=== PATIENT | female | born 1960 | race Hispanic/Latino ===

== ENCOUNTER 2020-11-03 15:15 | Inpatient (IN) | payer MEDICARE, OTHER ==
[2020-11-03] MEDS ORDERED: SODIUM CHLORIDE 0.9% 1000 ML 1,000 ML IV ONE (16:25)
--- NOTE | 2020-11-03 16:27 | Emergency Department Report ---
ED General Adult HPI - General Chief complaint: Altered Mental Status Stated complaint: ALTERED MENTAL STATUS PUI?: No Time Seen by Provider: 11/03/20 16:04 Source: patient, EMS (Verbal report received from emergency medical services. EMS documentation not available at time of chart dictation ), RN notes reviewed, old records reviewed Mode of arrival: Stretcher Limitations: Altered Mental Status, Physical Limitation - History of Present Illness Initial comments: The patient is a 59-year-old female. As per enclosed documentation, her past medical history includes chronic mental illness, extensive substance use history, but reportedly denies cocaine and meth. Her preference is liquor. As per enclosed psychiatric documentation, at [facility], she was noted to be talkative and illogical. She also denied hallucinations, denied homicidality or suicidality. On October 26, she was met at the bedside, and not found to have any complaints. In addition, it appears that there were no issues with her detox. She did not endorse homicidality or suicidality. On 2020 she was evaluated by the author, chart was reviewed, and she was found to be tangential, hyperverbal, circumstantial and confused. She also required redirection. On October 28, 2020, she was again seen for psychiatric follow-up, chart reviewed and case was seen with the treatment team. She was exhibiting disorganized nonsensical irrational thinking, with tangential thought process, and grandiose delusions. She denied hallucinations. However, she was noted to be difficult to follow, hyperverbal, easily confused, and requiring redirection. She did make nonsensical statements, such as indicating that a baseball superstar gave her $700 million. At that point in time, it was felt that her psychosis was worsening, and she was increased on her Zyprexa dose. It was also felt that the patient has severe impairment of level of functioning, and that discharge might exacerbate illness and severely impaired disorder, thoughts and perception. Today, she is sent to the emergency room by her psychiatric facility for evaluation of altered mental status. Her vital signs in the field were unremarkable. Last known well time is not known. As per verbal report from EMS they received a phone call for altered mental status. They report unremarkable vital signs in the field. Did not perform an Accu-Chek in the field. They report the patient required 2 person assistance with ambulation. Her current medications include Risperdal, Zyprexa, Tegretol. The patient herself is awake to name. She tells me that she lives in [place]. She knows that she is to the hospital. She is sleepy but arousable. She denies physical pain. She denies homicidality and suicidality. She denies headache, neck pain, chest pain, abdominal pain, shortness of breath, hematemesis, bright red blood per rectum, and urinary symptoms. However, she is sleepy, and difficult to arouse. She is a poor historian. She does not know the month, and she does not know the current president; she believes that the current president is the form present (Mr. Mace). On review of systems, she does endorse bilateral lower extremity swelling. It is unknown how long this swelling has been present for. The patient is confused, and cannot describe exacerbating, relieving factors, aggravating factors, or qualitative nature of her symptoms. -: unknown Location: left, right, lower extremity (Bilateral lower extremity swelling) Quality: other Consistency: other Improves with: other Worsens with: other Associated Symptoms: other - Related Data Allergies Allergy/AdvReac Type Severity Reaction Status Date / Time No Known Allergies Allergy Verified 11/03/20 16:05 ED Review of Systems ROS: Stated complaint: ALTERED MENTAL STATUS Other details as noted in HPI Comment: Unobtainable due to pts medical conditions ED Past Medical Hx - Social History Smoking Status: Former Smoker ED Physical Exam - General Limitations: Altered Mental Status, Physical Limitation General appearance: other (The patient is sleepy but arousable) - Head Head exam: Present: atraumatic, normocephalic - Eye Eye exam: Present: normal appearance, PERRL, EOMI. Absent: nystagmus - ENT ENT exam: Present: normal exam, normal orophraynx, mucous membranes moist, normal external ear exam - Neck Neck exam: Present: normal inspection, full ROM. Absent: tenderness, meningismus - Respiratory Respiratory exam: Present: normal lung sounds bilaterally. Absent: respiratory distress, wheezes, rales, rhonchi, stridor, decreased breath sounds - Cardiovascular Cardiovascular Exam: Present: regular rate, normal rhythm, normal heart sounds. Absent: bradycardia, tachycardia, irregular rhythm, systolic murmur, diastolic murmur, rubs, gallop - GI/Abdominal GI/Abdominal exam: Present: soft. Absent: distended, tenderness, guarding, rebound, rigid, pulsatile mass - Rectal Rectal exam: Present: normal inspection, other (Chaperoned by nurse Glendy tatum). Absent: heme (-) stool - Extremities Exam Extremities exam: Present: normal inspection, full ROM, pedal edema (2-3+ edema in the bilateral lower extremities.), other (2+ pulses noted in the bilateral upper and lower extremities. There is no palpable cord. negative Homans sign. Muscular compartments are soft. The pelvis is stable.). Absent: calf tenderness - Back Exam Back exam: Present: normal inspection, full ROM. Absent: tenderness, CVA tenderness (R), CVA tenderness (L), paraspinal tenderness, vertebral tenderness - Neurological Exam Neurological exam: Present: alert, reflexes normal, other (No facial droop. Tongue midline. Extraocular movements intact bilaterally. Facial sensation intact to light touch in V1, V2, V3 distribution bilaterally. 5 and a 5 strength in 4 extremities. Sensation intact to light touch in 4 extremities.) - Psychiatric Psychiatric exam: Present: flat affect. Absent: homicidal ideation, suicidal ideation - Skin Skin exam: Present: warm, dry, intact, normal color. Absent: rash ED Course Vital Signs 11/03/20 11/03/20 11/03/20 15:16 16:04 16:30 Temperature 97 F L Pulse Rate 80 75 92 H Respiratory 15 20 16 Rate Blood Pressure 93/62 124/70 Blood Pressure 123/69 [Left] O2 Sat by Pulse 99 98 100 Oximetry O2 Sat by Pulse Oximetry [ Digit-Finger] 11/03/20 11/03/20 11/03/20 17:00 18:10 18:30 Temperature Pulse Rate 76 81 Respiratory 9 L 13 Rate Blood Pressure 122/51 131/83 Blood Pressure [Left] O2 Sat by Pulse 100 100 Oximetry O2 Sat by Pulse 99 Oximetry [ Digit-Finger] 11/03/20 11/04/20 22:00 00:00 Temperature Pulse Rate Respiratory 20 Rate Blood Pressure Blood Pressure [Left] O2 Sat by Pulse 100 98 Oximetry O2 Sat by Pulse Oximetry [ Digit-Finger] - Reevaluation(s) Reevaluation #1: 11/03/20 16:45 Differential diagnosis, including but not limited to: Intracranial lesion, pneumonia, CHF, renal insufficiency, hepatic insufficiency, thyroid derangement, urinary tract infection, Warnicke's encephalopathy disorganized behavior Assessment and plan: 59-year-old female, who is afebrile, with reassuring vital signs, with scleral icterus, but no nystagmus, confusion, progressively worse frieda mental status over the past few days, complaint of possible ataxia, last known well time is not explicitly known, therefore, place patient on filter press tender head, obtain CT scan of the brain, x-ray of the chest, lower extremity DVT study, urinalysis, serum toxicology studies, arterial blood gas, administer fluids, lower extremity DVT study, and 500 mg of thiamine empirically for possible Wernicke's encephalopathy. Have requested neurology consultation. Reassess after initial data points. We will likely admit this patient for medical stabilization once her initial diagnostics have resulted. 11/03/20 18:09 Laboratory studies demonstrate nonspecific elevation in liver function tests, hyperbilirubinemia, normocytic anemia, elevated INR, negative DVT study, negative CT scan of the brain, hyperammonemia. Lactulose ordered. Admitted to the care of Dr. Kirkland of the internal medicine service. - Consultations Consultation #1: 11/04/20 00:21 Discussed history, physical, clinical impression and overall plan of care with consulting neurology, Dr. Manning. Her recommendations are reviewed and appreciated. Patient to be admitted to the medical service. She is in agreement with the plan of care. - Pulse Oximetry Interpretation Digit-Finger Initial Pulse Oximetry Readin O2 Sat by Pulse Oximetry: 99 Actions Taken: none ED Medical Decision Making - Lab Data Result diagrams: 11/03/20 16:29 11/03/20 16:29 Vital Signs 11/03/20 11/03/20 15:16 16:04 Temperature 97 F L Pulse Rate 80 75 Respiratory 15 20 Rate Blood Pressure 93/62 Blood Pressure 123/69 [Left] O2 Sat by Pulse 99 98 Oximetry Lab Results 11/03/20 11/03/20 11/03/20 Range/Units 16:01 16:29 16:29 WBC 7.6 (4.5-11.0) K/mm3 RBC 2.86 L (3.65-5.03) M/mm3 Hgb 9.6 L (10.1-14.3) gm/dl Hct 28.4 L (30.3-42.9) % MCV 99 H (79-97) fl MCH 33 H (28-32) pg MCHC 34 (30-34) % RDW 23.5 H (13.2-15.2) % Plt Count 169 (140-440) K/mm3 Lymph % (Auto) 12.9 L (13.4-35.0) % Ward % (Auto) 15.4 H (0.0-7.3) % Eos % (Auto) 1.2 (0.0-4.3) % Baso % (Auto) 0.9 (0.0-1.8) % Lymph # (Auto) 1.0 L (1.2-5.4) K/mm3 Ward # (Auto) 1.2 H (0.0-0.8) K/mm3 Eos # (Auto) 0.1 (0.0-0.4) K/mm3 Baso # (Auto) 0.1 (0.0-0.1) K/mm3 Seg Neutrophils % 69.6 (40.0-70.0) % Seg Neutrophils # 5.3 (1.8-7.7) K/mm3 PT 17.3 H (12.2-14.9) Sec. INR 1.35 H (0.87-1.13) APTT 36.0 (24.2-36.6) Sec. ABG pH (7.320-7.450) POC ABG pCO2 (32.0-48.0) mmHg POC ABG pO2 (83-108) mmHg POC ABG HCO3 ABG O2 Saturation (0-100) POC ABG Base Excess ABG Hemoglobin (12.0-17.5) ABG Oxyhemoglobin (94-98) ABG Methemoglobin (0.0-1.5) ABG Sodium (136.0-145.0) mmol/L ABG Potassium (3.40-4.50) mmol/L ABG Chloride (98-107) mmol/L ABG Glucose (65-95) mg/dL ABG Lactate (0.18-30.0) Carboxyhemoglobin (0.5-1.5) FiO2 % POC Glucose 92 (70-105) mg/dL Magnesium (1.7-2.3) mg/dL Total Creatine Kinase (30-135) units/L NT-Pro-B Natriuret Pep (0-900) pg/mL TSH (0.270-4.200) mlU/mL Arterial Blood Glucose (65-95) mg/dL Salicylates (2.8-20.0) mg/dL Acetaminophen (10.0-30.0) ug/mL Plasma/Serum Alcohol (0-0.07) % Blood Type 11/03/20 11/03/20 11/03/20 Range/Units 16:29 16:29 16:29 WBC (4.5-11.0) K/mm3 RBC (3.65-5.03) M/mm3 Hgb (10.1-14.3) gm/dl Hct (30.3-42.9) % MCV (79-97) fl MCH (28-32) pg MCHC (30-34) % RDW (13.2-15.2) % Plt Count (140-440) K/mm3 Lymph % (Auto) (13.4-35.0) % Ward % (Auto) (0.0-7.3) % Eos % (Auto) (0.0-4.3) % Baso % (Auto) (0.0-1.8) % Lymph # (Auto) (1.2-5.4) K/mm3 Ward # (Auto) (0.0-0.8) K/mm3 Eos # (Auto) (0.0-0.4) K/mm3 Baso # (Auto) (0.0-0.1) K/mm3 Seg Neutrophils % (40.0-70.0) % Seg Neutrophils # (1.8-7.7) K/mm3 PT (12.2-14.9) Sec. INR (0.87-1.13) APTT (24.2-36.6) Sec. ABG pH (7.320-7.450) POC ABG pCO2 (32.0-48.0) mmHg POC ABG pO2 (83-108) mmHg POC ABG HCO3 ABG O2 Saturation (0-100) POC ABG Base Excess ABG Hemoglobin (12.0-17.5) ABG Oxyhemoglobin (94-98) ABG Methemoglobin (0.0-1.5) ABG Sodium (136.0-145.0) mmol/L ABG Potassium (3.40-4.50) mmol/L ABG Chloride (98-107) mmol/L ABG Glucose (65-95) mg/dL ABG Lactate (0.18-30.0) Carboxyhemoglobin (0.5-1.5) FiO2 % POC Glucose (70-105) mg/dL Magnesium (1.7-2.3) mg/dL Total Creatine Kinase (30-135) units/L NT-Pro-B Natriuret Pep (0-900) pg/mL TSH 1.400 (0.270-4.200) mlU/mL Arterial Blood Glucose (65-95) mg/dL Salicylates < 0.3 L (2.8-20.0) mg/dL Acetaminophen 5.0 L (10.0-30.0) ug/mL Plasma/Serum Alcohol (0-0.07) % Blood Type 11/03/20 11/03/20 11/03/20 Range/Units 16:29 16:29 16:29 WBC (4.5-11.0) K/mm3 RBC (3.65-5.03) M/mm3 Hgb (10.1-14.3) gm/dl Hct (30.3-42.9) % MCV (79-97) fl MCH (28-32) pg MCHC (30-34) % RDW (13.2-15.2) % Plt Count (140-440) K/mm3 Lymph % (Auto) (13.4-35.0) % Ward % (Auto) (0.0-7.3) % Eos % (Auto) (0.0-4.3) % Baso % (Auto) (0.0-1.8) % Lymph # (Auto) (1.2-5.4) K/mm3 Ward # (Auto) (0.0-0.8) K/mm3 Eos # (Auto) (0.0-0.4) K/mm3 Baso # (Auto) (0.0-0.1) K/mm3 Seg Neutrophils % (40.0-70.0) % Seg Neutrophils # (1.8-7.7) K/mm3 PT (12.2-14.9) Sec. INR (0.87-1.13) APTT (24.2-36.6) Sec. ABG pH (7.320-7.450) POC ABG pCO2 (32.0-48.0) mmHg POC ABG pO2 (83-108) mmHg POC ABG HCO3 ABG O2 Saturation (0-100) POC ABG Base Excess ABG Hemoglobin (12.0-17.5) ABG Oxyhemoglobin (94-98) ABG Methemoglobin (0.0-1.5) ABG Sodium (136.0-145.0) mmol/L ABG Potassium (3.40-4.50) mmol/L ABG Chloride (98-107) mmol/L ABG Glucose (65-95) mg/dL ABG Lactate (0.18-30.0) Carboxyhemoglobin (0.5-1.5) FiO2 % POC Glucose (70-105) mg/dL Magnesium 1.80 (1.7-2.3) mg/dL Total Creatine Kinase 78 (30-135) units/L NT-Pro-B Natriuret Pep 416.8 (0-900) pg/mL TSH (0.270-4.200) mlU/mL Arterial Blood Glucose (65-95) mg/dL Salicylates (2.8-20.0) mg/dL Acetaminophen (10.0-30.0) ug/mL Plasma/Serum Alcohol < 0.01 (0-0.07) % Blood Type O POSITIVE 11/03/20 Range/Units 17:16 WBC (4.5-11.0) K/mm3 RBC (3.65-5.03) M/mm3 Hgb (10.1-14.3) gm/dl Hct (30.3-42.9) % MCV (79-97) fl MCH (28-32) pg MCHC (30-34) % RDW (13.2-15.2) % Plt Count (140-440) K/mm3 Lymph % (Auto) (13.4-35.0) % Ward % (Auto) (0.0-7.3) % Eos % (Auto) (0.0-4.3) % Baso % (Auto) (0.0-1.8) % Lymph # (Auto) (1.2-5.4) K/mm3 Ward # (Auto) (0.0-0.8) K/mm3 Eos # (Auto) (0.0-0.4) K/mm3 Baso # (Auto) (0.0-0.1) K/mm3 Seg Neutrophils % (40.0-70.0) % Seg Neutrophils # (1.8-7.7) K/mm3 PT (12.2-14.9) Sec. INR (0.87-1.13) APTT (24.2-36.6) Sec. ABG pH 7.414 (7.320-7.450) POC ABG pCO2 33.8 (32.0-48.0) mmHg POC ABG pO2 91.9 (83-108) mmHg POC ABG HCO3 21.1 ABG O2 Saturation 96.5 (0-100) POC ABG Base Excess -2.9 ABG Hemoglobin 10.5 L (12.0-17.5) ABG Oxyhemoglobin 96.2 (94-98) ABG Methemoglobin 0.1 (0.0-1.5) ABG Sodium 139.0 (136.0-145.0) mmol/L ABG Potassium 4.3 (3.40-4.50) mmol/L ABG Chloride 106.0 (98-107) mmol/L ABG Glucose 84 (65-95) mg/dL ABG Lactate 1.13 (0.18-30.0) Carboxyhemoglobin 0.2 L (0.5-1.5) FiO2 % 21.0 POC Glucose (70-105) mg/dL Magnesium (1.7-2.3) mg/dL Total Creatine Kinase (30-135) units/L NT-Pro-B Natriuret Pep (0-900) pg/mL TSH (0.270-4.200) mlU/mL Arterial Blood Glucose 84 (65-95) mg/dL Salicylates (2.8-20.0) mg/dL Acetaminophen (10.0-30.0) ug/mL Plasma/Serum Alcohol (0-0.07) % Blood Type Lab Results 11/03/20 11/03/20 11/03/20 Range/Units 16:01 16:29 16:29 WBC 7.6 (4.5-11.0) K/mm3 RBC 2.86 L (3.65-5.03) M/mm3 Hgb 9.6 L (10.1-14.3) gm/dl Hct 28.4 L (30.3-42.9) % MCV 99 H (79-97) fl MCH 33 H (28-32) pg MCHC 34 (30-34) % RDW 23.5 H (13.2-15.2) % Plt Count 169 (140-440) K/mm3 Lymph % (Auto) 12.9 L (13.4-35.0) % Ward % (Auto) 15.4 H (0.0-7.3) % Eos % (Auto) 1.2 (0.0-4.3) % Baso % (Auto) 0.9 (0.0-1.8) % Lymph # (Auto) 1.0 L (1.2-5.4) K/mm3 Ward # (Auto) 1.2 H (0.0-0.8) K/mm3 Eos # (Auto) 0.1 (0.0-0.4) K/mm3 Baso # (Auto) 0.1 (0.0-0.1) K/mm3 Seg Neutrophils % 69.6 (40.0-70.0) % Seg Neutrophils # 5.3 (1.8-7.7) K/mm3 PT 17.3 H (12.2-14.9) Sec. INR 1.35 H (0.87-1.13) APTT 36.0 (24.2-36.6) Sec. ABG pH (7.320-7.450) POC ABG pCO2 (32.0-48.0) mmHg POC ABG pO2 (83-108) mmHg POC ABG HCO3 ABG O2 Saturation (0-100) POC ABG Base Excess ABG Hemoglobin (12.0-17.5) ABG Oxyhemoglobin (94-98) ABG Methemoglobin (0.0-1.5) ABG Sodium (136.0-145.0) mmol/L ABG Potassium (3.40-4.50) mmol/L ABG Chloride (98-107) mmol/L ABG Glucose (65-95) mg/dL ABG Lactate (0.18-30.0) Carboxyhemoglobin (0.5-1.5) FiO2 % Sodium (137-145) mmol/L Potassium (3.6-5.0) mmol/L Chloride (98-107) mmol/L Carbon Dioxide (22-30) mmol/L Anion Gap mmol/L BUN (7-17) mg/dL Creatinine (0.6-1.2) mg/dL Estimated GFR ml/min BUN/Creatinine Ratio % Glucose (65-100) mg/dL POC Glucose 92 (70-105) mg/dL Lactic Acid (0.7-2.0) mmol/L Calcium (8.4-10.2) mg/dL Magnesium (1.7-2.3) mg/dL Total Bilirubin (0.1-1.2) mg/dL AST (5-40) units/L ALT (7-56) units/L Alkaline Phosphatase (35-129) units/L Ammonia (25-60) umol/L Total Creatine Kinase (30-135) units/L Troponin T (0.00-0.029) ng/mL NT-Pro-B Natriuret Pep (0-900) pg/mL Total Protein (6.3-8.2) g/dL Albumin (3.9-5) g/dL Albumin/Globulin Ratio % TSH (0.270-4.200) mlU/mL Arterial Blood Glucose (65-95) mg/dL Salicylates (2.8-20.0) mg/dL Acetaminophen (10.0-30.0) ug/mL Plasma/Serum Alcohol (0-0.07) % Blood Type Antibody Screen 11/03/20 11/03/20 11/03/20 Range/Units 16:29 16:29 16:29 WBC (4.5-11.0) K/mm3 RBC (3.65-5.03) M/mm3 Hgb (10.1-14.3) gm/dl Hct (30.3-42.9) % MCV (79-97) fl MCH (28-32) pg MCHC (30-34) % RDW (13.2-15.2) % Plt Count (140-440) K/mm3 Lymph % (Auto) (13.4-35.0) % Ward % (Auto) (0.0-7.3) % Eos % (Auto) (0.0-4.3) % Baso % (Auto) (0.0-1.8) % Lymph # (Auto) (1.2-5.4) K/mm3 Ward # (Auto) (0.0-0.8) K/mm3 Eos # (Auto) (0.0-0.4) K/mm3 Baso # (Auto) (0.0-0.1) K/mm3 Seg Neutrophils % (40.0-70.0) % Seg Neutrophils # (1.8-7.7) K/mm3 PT (12.2-14.9) Sec. INR (0.87-1.13) APTT (24.2-36.6) Sec. ABG pH (7.320-7.450) POC ABG pCO2 (32.0-48.0) mmHg POC ABG pO2 (83-108) mmHg POC ABG HCO3 ABG O2 Saturation (0-100) POC ABG Base Excess ABG Hemoglobin (12.0-17.5) ABG Oxyhemoglobin (94-98) ABG Methemoglobin (0.0-1.5) ABG Sodium (136.0-145.0) mmol/L ABG Potassium (3.40-4.50) mmol/L ABG Chloride (98-107) mmol/L ABG Glucose (65-95) mg/dL ABG Lactate (0.18-30.0) Carboxyhemoglobin (0.5-1.5) FiO2 % Sodium 138 (137-145) mmol/L Potassium 4.5 (3.6-5.0) mmol/L Chloride 105.1 (98-107) mmol/L Carbon Dioxide 25 (22-30) mmol/L Anion Gap 12 mmol/L BUN 13 (7-17) mg/dL Creatinine 0.5 L (0.6-1.2) mg/dL Estimated GFR > 60 ml/min BUN/Creatinine Ratio 26 % Glucose 91 (65-100) mg/dL POC Glucose (70-105) mg/dL Lactic Acid 1.30 (0.7-2.0) mmol/L Calcium 8.9 (8.4-10.2) mg/dL Magnesium (1.7-2.3) mg/dL Total Bilirubin 4.00 H (0.1-1.2) mg/dL AST 72 H (5-40) units/L ALT 48 (7-56) units/L Alkaline Phosphatase 471 H (35-129) units/L Ammonia 89.0 H (25-60) umol/L Total Creatine Kinase (30-135) units/L Troponin T < 0.010 (0.00-0.029) ng/mL NT-Pro-B Natriuret Pep (0-900) pg/mL Total Protein 6.1 L (6.3-8.2) g/dL Albumin 2.7 L (3.9-5) g/dL Albumin/Globulin Ratio 0.8 % TSH (0.270-4.200) mlU/mL Arterial Blood Glucose (65-95) mg/dL Salicylates (2.8-20.0) mg/dL Acetaminophen (10.0-30.0) ug/mL Plasma/Serum Alcohol (0-0.07) % Blood Type Antibody Screen 11/03/20 11/03/20 11/03/20 Range/Units 16:29 16:29 16:29 WBC (4.5-11.0) K/mm3 RBC (3.65-5.03) M/mm3 Hgb (10.1-14.3) gm/dl Hct (30.3-42.9) % MCV (79-97) fl MCH (28-32) pg MCHC (30-34) % RDW (13.2-15.2) % Plt Count (140-440) K/mm3 Lymph % (Auto) (13.4-35.0) % Ward % (Auto) (0.0-7.3) % Eos % (Auto) (0.0-4.3) % Baso % (Auto) (0.0-1.8) % Lymph # (Auto) (1.2-5.4) K/mm3 Ward # (Auto) (0.0-0.8) K/mm3 Eos # (Auto) (0.0-0.4) K/mm3 Baso # (Auto) (0.0-0.1) K/mm3 Seg Neutrophils % (40.0-70.0) % Seg Neutrophils # (1.8-7.7) K/mm3 PT (12.2-14.9) Sec. INR (0.87-1.13) APTT (24.2-36.6) Sec. ABG pH (7.320-7.450) POC ABG pCO2 (32.0-48.0) mmHg POC ABG pO2 (83-108) mmHg POC ABG HCO3 ABG O2 Saturation (0-100) POC ABG Base Excess ABG Hemoglobin (12.0-17.5) ABG Oxyhemoglobin (94-98) ABG Methemoglobin (0.0-1.5) ABG Sodium (136.0-145.0) mmol/L ABG Potassium (3.40-4.50) mmol/L ABG Chloride (98-107) mmol/L ABG Glucose (65-95) mg/dL ABG Lactate (0.18-30.0) Carboxyhemoglobin (0.5-1.5) FiO2 % Sodium (137-145) mmol/L Potassium (3.6-5.0) mmol/L Chloride (98-107) mmol/L Carbon Dioxide (22-30) mmol/L Anion Gap mmol/L BUN (7-17) mg/dL Creatinine (0.6-1.2) mg/dL Estimated GFR ml/min BUN/Creatinine Ratio % Glucose (65-100) mg/dL POC Glucose (70-105) mg/dL Lactic Acid (0.7-2.0) mmol/L Calcium (8.4-10.2) mg/dL Magnesium (1.7-2.3) mg/dL Total Bilirubin (0.1-1.2) mg/dL AST (5-40) units/L ALT (7-56) units/L Alkaline Phosphatase (35-129) units/L Ammonia (25-60) umol/L Total Creatine Kinase (30-135) units/L Troponin T (0.00-0.029) ng/mL NT-Pro-B Natriuret Pep (0-900) pg/mL Total Protein (6.3-8.2) g/dL Albumin (3.9-5) g/dL Albumin/Globulin Ratio % TSH 1.400 (0.270-4.200) mlU/mL Arterial Blood Glucose (65-95) mg/dL Salicylates < 0.3 L (2.8-20.0) mg/dL Acetaminophen 5.0 L (10.0-30.0) ug/mL Plasma/Serum Alcohol (0-0.07) % Blood Type Antibody Screen 11/03/20 11/03/20 11/03/20 Range/Units 16:29 16:29 16:29 WBC (4.5-11.0) K/mm3 RBC (3.65-5.03) M/mm3 Hgb (10.1-14.3) gm/dl Hct (30.3-42.9) % MCV (79-97) fl MCH (28-32) pg MCHC (30-34) % RDW (13.2-15.2) % Plt Count (140-440) K/mm3 Lymph % (Auto) (13.4-35.0) % Ward % (Auto) (0.0-7.3) % Eos % (Auto) (0.0-4.3) % Baso % (Auto) (0.0-1.8) % Lymph # (Auto) (1.2-5.4) K/mm3 Ward # (Auto) (0.0-0.8) K/mm3 Eos # (Auto) (0.0-0.4) K/mm3 Baso # (Auto) (0.0-0.1) K/mm3 Seg Neutrophils % (40.0-70.0) % Seg Neutrophils # (1.8-7.7) K/mm3 PT (12.2-14.9) Sec. INR (0.87-1.13) APTT (24.2-36.6) Sec. ABG pH (7.320-7.450) POC ABG pCO2 (32.0-48.0) mmHg POC ABG pO2 (83-108) mmHg POC ABG HCO3 ABG O2 Saturation (0-100) POC ABG Base Excess ABG Hemoglobin (12.0-17.5) ABG Oxyhemoglobin (94-98) ABG Methemoglobin (0.0-1.5) ABG Sodium (136.0-145.0) mmol/L ABG Potassium (3.40-4.50) mmol/L ABG Chloride (98-107) mmol/L ABG Glucose (65-95) mg/dL ABG Lactate (0.18-30.0) Carboxyhemoglobin (0.5-1.5) FiO2 % Sodium (137-145) mmol/L Potassium (3.6-5.0) mmol/L Chloride (98-107) mmol/L Carbon Dioxide (22-30) mmol/L Anion Gap mmol/L BUN (7-17) mg/dL Creatinine (0.6-1.2) mg/dL Estimated GFR ml/min BUN/Creatinine Ratio % Glucose (65-100) mg/dL POC Glucose (70-105) mg/dL Lactic Acid (0.7-2.0) mmol/L Calcium (8.4-10.2) mg/dL Magnesium 1.80 (1.7-2.3) mg/dL Total Bilirubin (0.1-1.2) mg/dL AST (5-40) units/L ALT (7-56) units/L Alkaline Phosphatase (35-129) units/L Ammonia (25-60) umol/L Total Creatine Kinase 78 (30-135) units/L Troponin T (0.00-0.029) ng/mL NT-Pro-B Natriuret Pep 416.8 (0-900) pg/mL Total Protein (6.3-8.2) g/dL Albumin (3.9-5) g/dL Albumin/Globulin Ratio % TSH (0.270-4.200) mlU/mL Arterial Blood Glucose (65-95) mg/dL Salicylates (2.8-20.0) mg/dL Acetaminophen (10.0-30.0) ug/mL Plasma/Serum Alcohol < 0.01 (0-0.07) % Blood Type O POSITIVE Antibody Screen Negative 11/03/20 Range/Units 17:16 WBC (4.5-11.0) K/mm3 RBC (3.65-5.03) M/mm3 Hgb (10.1-14.3) gm/dl Hct (30.3-42.9) % MCV (79-97) fl MCH (28-32) pg MCHC (30-34) % RDW (13.2-15.2) % Plt Count (140-440) K/mm3 Lymph % (Auto) (13.4-35.0) % Ward % (Auto) (0.0-7.3) % Eos % (Auto) (0.0-4.3) % Baso % (Auto) (0.0-1.8) % Lymph # (Auto) (1.2-5.4) K/mm3 Ward # (Auto) (0.0-0.8) K/mm3 Eos # (Auto) (0.0-0.4) K/mm3 Baso # (Auto) (0.0-0.1) K/mm3 Seg Neutrophils % (40.0-70.0) % Seg Neutrophils # (1.8-7.7) K/mm3 PT (12.2-14.9) Sec. INR (0.87-1.13) APTT (24.2-36.6) Sec. ABG pH 7.414 (7.320-7.450) POC ABG pCO2 33.8 (32.0-48.0) mmHg POC ABG pO2 91.9 (83-108) mmHg POC ABG HCO3 21.1 ABG O2 Saturation 96.5 (0-100) POC ABG Base Excess -2.9 ABG Hemoglobin 10.5 L (12.0-17.5) ABG Oxyhemoglobin 96.2 (94-98) ABG Methemoglobin 0.1 (0.0-1.5) ABG Sodium 139.0 (136.0-145.0) mmol/L ABG Potassium 4.3 (3.40-4.50) mmol/L ABG Chloride 106.0 (98-107) mmol/L ABG Glucose 84 (65-95) mg/dL ABG Lactate 1.13 (0.18-30.0) Carboxyhemoglobin 0.2 L (0.5-1.5) FiO2 % 21.0 Sodium (137-145) mmol/L Potassium (3.6-5.0) mmol/L Chloride (98-107) mmol/L Carbon Dioxide (22-30) mmol/L Anion Gap mmol/L BUN (7-17) mg/dL Creatinine (0.6-1.2) mg/dL Estimated GFR ml/min BUN/Creatinine Ratio % Glucose (65-100) mg/dL POC Glucose (70-105) mg/dL Lactic Acid (0.7-2.0) mmol/L Calcium (8.4-10.2) mg/dL Magnesium (1.7-2.3) mg/dL Total Bilirubin (0.1-1.2) mg/dL AST (5-40) units/L ALT (7-56) units/L Alkaline Phosphatase (35-129) units/L Ammonia (25-60) umol/L Total Creatine Kinase (30-135) units/L Troponin T (0.00-0.029) ng/mL NT-Pro-B Natriuret Pep (0-900) pg/mL Total Protein (6.3-8.2) g/dL Albumin (3.9-5) g/dL Albumin/Globulin Ratio % TSH (0.270-4.200) mlU/mL Arterial Blood Glucose 84 (65-95) mg/dL Salicylates (2.8-20.0) mg/dL Acetaminophen (10.0-30.0) ug/mL Plasma/Serum Alcohol (0-0.07) % Blood Type Antibody Screen Vital Signs 11/03/20 11/03/20 11/03/20 15:16 16:04 17:34 Temperature 97 F L Pulse Rate 80 75 Respiratory 15 20 Rate Blood Pressure 93/62 Blood Pressure 123/69 [Left] O2 Sat by Pulse 99 98 Oximetry O2 Sat by Pulse 99 Oximetry [ Digit-Finger] - EKG Data -: EKG Interpreted by Ca EKG shows normal: sinus rhythm Rate: normal - EKG Data When compared to previous EKG there are: previous EKG unavailable 11/03/20 16:39 EKG is interpreted at 16: 23 Sinus rhythm, 78 bpm. Normal P wave axis. Normal intervals. Poor R wave progression. Left ventricular hypertrophy. Abnormal EKG. Not a STEMI. No prior for comparison. - Radiology Data Radiology results: pending, report reviewed, image reviewed DUPLEX DOPPLER LOWER EXTREMITY VEINS, BILATERAL INDICATION / CLINICAL INFORMATION: Bilateral lower extremity swelling. Altered mental status. TECHNIQUE: Duplex doppler imaging was performed through the veins of both lower extremities using venous compression and other maneuvers. COMPARISON: None available. FINDINGS: RIGHT COMMON FEMORAL VEIN: Negative. RIGHT FEMORAL VEIN: Negative. RIGHT POPLITEAL VEIN: Negative. RIGHT CALF VEINS: Negative. LEFT COMMON FEMORAL VEIN: Negative. LEFT FEMORAL VEIN: Negative. LEFT POPLITEAL VEIN: Negative. LEFT CALF VEINS: Negative. ADDITIONAL FINDINGS: There is mild bilateral lower leg edema. I see no evidence of a popliteal cyst or other abnormality. IMPRESSION: No sonographic evidence for DVT in either lower extremity. Signer Name: Berry Pires MD Signed: 11/03/2020 4:18 PM Workstation Name: [id number] 1 VIEW 11/03/2020 3:46 PM INDICATION / CLINICAL INFORMATION: Altered Mental Status. COMPARISON: None available. FINDINGS: SUPPORT DEVICES: None. HEART / MEDIASTINUM: No significant abnormality. LUNGS / PLEURA: No significant pulmonary or pleural abnormality. No pneumothorax. ADDITIONAL FINDINGS: Multiple old, healed right rib fractures. IMPRESSION: 1. No acute findings. Signer Name: Callie Garcia MD Signed: 11/03/2020 3:48 PM Workstation Name: [id number] Critical Care Time: Yes Critical care time in (mins) excluding proc time.: 35 Critical care attestation.: If time is entered above; I have spent that time in minutes in the direct care of this critically ill patient, excluding procedure time. ED Disposition Clinical Impression: Lower extremity edema, Normocytic anemia, Acute encephalopathy, Alcohol dependence Disposition: 09 OP ADMIT IP TO THIS HOSP Is pt being admited?: Yes Does the pt Need Aspirin: No Condition: Fair
[2020-11-03] MEDS ORDERED: THIAMINE 100 MG, FOLIC ACID 1 MG, MULTIPLE VITAMIN INJ, ADULT 10 ML in SODIUM CHLORIDE ... IV ONE (16:49)
[2020-11-03 16:56] LABS: Basophils # (Auto) 0.1 K/mm3 (0.0-0.1); Basophils % (Auto) 0.9 % (0.0-1.8); Eosinophils # (Auto) 0.1 K/mm3 (0.0-0.4); Eosinophils % (Auto) 1.2 % (0.0-4.3); Hematocrit 28.4 % (30.3-42.9); Hemoglobin 9.6 gm/dl (10.1-14.3); Lymphocytes % (Auto) 12.9 % (13.4-35.0); Mean Corpuscular HGB Conc 34 % (30-34); Mean Corpuscular Volume 99 fl (79-97); Monocytes # (Auto) 1.2 K/mm3 (0.0-0.8); Monocytes % (Auto) 15.4 % (0.0-7.3); Platelet Count 169 K/mm3 (140-440); Red Blood Count 2.86 M/mm3 (3.65-5.03)
[2020-11-03 17:00] LABS: Red Cell Distribution Width 23.5 % (13.2-15.2)
[2020-11-03 17:06] LABS: INR 1.35 (0.87-1.13)
--- NOTE | 2020-11-03 17:08 | Emergency Department Report ---
Blank Doc - Documentation Documentation: [facility] Consult Note # Demographics Consult Type: General Neurology Patient Location: Emergency Room First Name: Lucille Last Name: Jose Date of : 1960 Age: 59 Gender: Female Time of Initial Page (Eastern Time): 11/03/2020, 16:45 Time of Return Call (Eastern Time): 11/03/2020, 16:46 # HPI History: 59yo F presents with worsening AMS. unclear last well time.has scleral icterus, no abnormal eye movements seen. the patient is unable to provide a history at this time. reportedly has had a coupel fo days of gradual decline # Exam Mental Status: not alert oriented x 3 follows commands confused disoriented to place disoriented to time Language: dysarthria Cranial Nerves: face symmetric , EOMs full Motor: normal strength negative myoclonus in UE present Cerebellar: normal cerebellar exam # PMH-FH-SH Past Medical History: zyprexa, tegretol, risperidol Social History: excessive alcohol # Assessment Impression: Altered Mental Status toxic/metabolic most likely. # Plan Labs: Ammonia CBC comprehensive metabolic panel thiamine urine drug screen BAL Imaging: (urgency: routine): MRI Brain with AND without contrast Diagnostic Test: EEG Medication: high dose thiamine supplementation (500mg TID) Other: I have discussed my recommendations with the referring provider Additional Recommendations: hold meds that may worsen encephalopathy metabolic and infectious work-up # Logistics Telemedicine: Interactive 2 way audio and visual telecommunication technology was utilized during this visit
[2020-11-03] MEDS ORDERED: THIAMINE 500 MG in SODIUM CHLORIDE 0.9% 50 ML IV ONE (17:44)
[2020-11-03 17:50] LABS: Alanine Aminotransferase 48 units/L (7-56); Albumin 2.7 g/dL (3.9-5); Blood Urea Nitrogen 13 mg/dL (7-17); Calcium 8.9 mg/dL (8.4-10.2); Hemolysis Index 0
[2020-11-03 17:57] LABS: BUN/Creatinine Ratio 26
[2020-11-03] MEDS ORDERED: LACTULOSE 20 GM/30 ML ORAL LIQD PO ONE (18:07)
[2020-11-03 18:13] LABS: Bacteria,Urine 2+ /HPF (Negative); Bilirubin,Urine NEG (Negative); Blood,Urine NEG (Negative); Color,Urine Amber (Yellow); Mucus,Urine FEW /HPF; Protein,Urine <15 mg/dL mg/dL (Negative)
[2020-11-03] MEDS ORDERED: ALBUTEROL 2.5 MG/3 ML NEBU IH PRN (18:14)
--- NOTE | 2020-11-03 18:16 | History and Physical Report ---
History of Present Illness Chief complaint: She is confused History of present illness: 59 YO Female resident at [facility] for ETOH Detoxification with ETOH Dependence, ETOH Liver Disease, Psychosis presents to ED for evaluation. Patient is confused and lethargic at the time my evaluation is unable to provide detailed history. Patient history taken from EMS staff, ED staff, as well as review with staff. Patient was found to have increased lethargy as well as confusion over the past 1 day with persistent symptoms over the same timeframe as per staff. EMS was notified and upon arrival the patient was found to be in distress and subsequently transported to [facility] for further care and evaluation of the aforementioned symptoms. The patient was seen and evaluated in the emergency department. All lab and imaging studies reviewed. Patient found to have hepatic encephalopathy with increased bilirubin level, moderate malnutrition. Patient placed in observation status and admitted to medical floor and treated with supportive care due to increased risk of worsening symptoms. No reports of fever, chills, chest pain, palpitation, productive cough, trauma, recent ill contacts, known exposure to COVID-19. No prior admission for review. No medication listed at time of admission for reconciliation. Patient has diminished cognition but has a positive gag reflex and is able to protect her airway without difficulty at the time my evaluation. Past History Past Medical History: other (See HPI) Past Surgical History: No surgical history, Other (Unable to obtain) Social history: single, alcohol abuse. denies: smoking Family history: no significant family history, other (Unable to obtain) Medications and Allergies Allergies Allergy/AdvReac Type Severity Reaction Status Date / Time No Known Allergies Allergy Verified 11/03/20 16:05 Active Meds: Active Medications Acetaminophen (Acetaminophen 325 Mg Tab) 650 mg PO Q4H PRN PRN Reason: Pain MILD(1-3)/Fever >100.5/[place] Albuterol (Albuterol 2.5 Mg/3 Ml Nebu) 2.5 mg IH Q4HRT PRN PRN Reason: Shortness Of Breath Thiamine HCl 100 mg/ Folic Acid 1 mg/ Multivitamins/Minerals 10 ml/ Sodium Chloride 1,011.2 mls @ 250 mls/hr IV ONCE ONE Stop: 11/03/20 20:51 Ondansetron HCl (Ondansetron 4 Mg/2 Ml Inj) 4 mg IV Q8H PRN PRN Reason: Nausea And Vomiting Sodium Chloride (Sodium Chloride 0.9% 10 Ml Flush Syringe) 10 ml IV BID TERESA Sodium Chloride (Sodium Chloride 0.9% 10 Ml Flush Syringe) 10 ml IV PRN PRN PRN Reason: LINE FLUSH Review of Systems ROS unobtainable: due to mental status Exam - Constitutional Vitals: Temp Pulse Resp BP Pulse Ox 97 F L 75 20 123/69 99 11/03/20 15:16 11/03/20 16:04 11/03/20 16:04 11/03/20 16:04 11/03/20 18:10 General appearance: Present: mild distress - EENT Eyes: Present: PERRL ENT: clear oral mucosa, hearing decreased - Neck Neck: Present: supple, normal ROM - Respiratory Respiratory: bilateral: CTA - Cardiovascular Heart Sounds: Present: S1 & S2. Absent: rub, click - Extremities Extremities: pulses symmetrical, No edema Peripheral Pulses: within normal limits - Abdominal General gastrointestinal: Present: soft, non-tender, non-distended, normal bowel sounds Female genitourinary: Present: normal - Integumentary Integumentary: Present: clear, warm, dry - Musculoskeletal Musculoskeletal: generalized weakness - Psychiatric Psychiatric: no appropriate mood/affect, no intact judgment & insight - Neurologic Neurologic: CNII-XII intact, no focal deficits, moves all extremities, no gait normal HEART Score - HEART Score Troponin: Troponin T < 0.010 ng/mL (0.00-0.029) 11/03/20 16:29 Results - Labs CBC & Chem 7: 11/03/20 16:29 11/03/20 16:29 Labs: Abnormal lab results 11/03/20 11/03/20 11/03/20 Range/Units 16:29 16:29 16:29 RBC 2.86 L (3.65-5.03) M/mm3 Hgb 9.6 L (10.1-14.3) gm/dl Hct 28.4 L (30.3-42.9) % MCV 99 H (79-97) fl MCH 33 H (28-32) pg RDW 23.5 H (13.2-15.2) % Lymph % (Auto) 12.9 L (13.4-35.0) % [place] % (Auto) 15.4 H (0.0-7.3) % Lymph # (Auto) 1.0 L (1.2-5.4) K/mm3 [place] # (Auto) 1.2 H (0.0-0.8) K/mm3 PT 17.3 H (12.2-14.9) Sec. INR 1.35 H (0.87-1.13) ABG Hemoglobin (12.0-17.5) Carboxyhemoglobin (0.5-1.5) Creatinine 0.5 L (0.6-1.2) mg/dL Total Bilirubin 4.00 H (0.1-1.2) mg/dL AST 72 H (5-40) units/L Alkaline Phosphatase 471 H (35-129) units/L Ammonia (25-60) umol/L Total Protein 6.1 L (6.3-8.2) g/dL Albumin 2.7 L (3.9-5) g/dL Salicylates (2.8-20.0) mg/dL Acetaminophen (10.0-30.0) ug/mL 11/03/20 11/03/20 11/03/20 Range/Units 16:29 16:29 16:29 RBC (3.65-5.03) M/mm3 Hgb (10.1-14.3) gm/dl Hct (30.3-42.9) % MCV (79-97) fl MCH (28-32) pg RDW (13.2-15.2) % Lymph % (Auto) (13.4-35.0) % [place] % (Auto) (0.0-7.3) % Lymph # (Auto) (1.2-5.4) K/mm3 [place] # (Auto) (0.0-0.8) K/mm3 PT (12.2-14.9) Sec. INR (0.87-1.13) ABG Hemoglobin (12.0-17.5) Carboxyhemoglobin (0.5-1.5) Creatinine (0.6-1.2) mg/dL Total Bilirubin (0.1-1.2) mg/dL AST (5-40) units/L Alkaline Phosphatase (35-129) units/L Ammonia 89.0 H (25-60) umol/L Total Protein (6.3-8.2) g/dL Albumin (3.9-5) g/dL Salicylates < 0.3 L (2.8-20.0) mg/dL Acetaminophen 5.0 L (10.0-30.0) ug/mL 11/03/20 Range/Units 17:16 RBC (3.65-5.03) M/mm3 Hgb (10.1-14.3) gm/dl Hct (30.3-42.9) % MCV (79-97) fl MCH (28-32) pg RDW (13.2-15.2) % Lymph % (Auto) (13.4-35.0) % [place] % (Auto) (0.0-7.3) % Lymph # (Auto) (1.2-5.4) K/mm3 [place] # (Auto) (0.0-0.8) K/mm3 PT (12.2-14.9) Sec. INR (0.87-1.13) ABG Hemoglobin 10.5 L (12.0-17.5) Carboxyhemoglobin 0.2 L (0.5-1.5) Creatinine (0.6-1.2) mg/dL Total Bilirubin (0.1-1.2) mg/dL AST (5-40) units/L Alkaline Phosphatase (35-129) units/L Ammonia (25-60) umol/L Total Protein (6.3-8.2) g/dL Albumin (3.9-5) g/dL Salicylates (2.8-20.0) mg/dL Acetaminophen (10.0-30.0) ug/mL Assessment and Plan - Patient Problems (1) Hepatic encephalopathy Current Visit: Yes Status: Acute Plan to address problem: Ammonia level, lactulose twice daily scheduled, neuro check, seizure precaution, aspiration precaution, fall precautions, repeat CMP in a.m. (2) Alcohol dependence Current Visit: Yes Status: Acute Plan to address problem: Alcohol withdrawal protocol: Thiamine, multivitamin vitamin, folic acid, CIWA protocol (3) Malnutrition Current Visit: Yes Status: Acute Qualifiers: Protein-calorie malnutrition severity: moderate Plan to address problem: Dietary supplementation, increase protein intake, (4) Hyperammonemia Current Visit: Yes Status: Acute Plan to address problem: Ammonia level, repeat ammonia level in a.m., lactulose twice daily, (5) DVT prophylaxis Current Visit: Yes Status: Acute Plan to address problem: SCD to bilateral lower extremities while in bed,
[2020-11-03] MEDS ORDERED: LACTULOSE 20 GM/30 ML ORAL LIQD PO SCH (22:00)
[2020-11-04 06:44] LABS: Alanine Aminotransferase 41 units/L (7-56); Albumin 2.4 g/dL (3.9-5); BUN/Creatinine Ratio 22; Blood Urea Nitrogen 11 mg/dL (7-17); Calcium 8.1 mg/dL (8.4-10.2); Hemolysis Index 2
--- NOTE | 2020-11-04 07:50 | Progress Note ---
Assessment and Plan Assessment and plan: 59 YO Female resident at [place] for ETOH Detoxification with ETOH Dependence, ETOH Liver Disease, Psychosis presents to ED for evaluation. Patient is confused and lethargic at the time my evaluation is unable to provide detailed history. Patient history taken from EMS staff, ED staff, as well as pablo augustin with staff. Patient was found to have increased lethargy as well as confusion over the past 1 day with persistent symptoms over the same timeframe as per staff. EMS was notified and upon arrival the patient was found to be in distress and subsequently transported to [facility] for further care and evaluation of the aforementioned symptoms. The patient was seen and evaluated in the emergency department. All lab and imaging studies reviewed. Patient found to have hepatic encephalopathy with increased bilirubin level, moderate malnutrition. Patient placed in observation status and admitted to medical floor and treated with supportive care due to increased risk of worsening symptoms. No reports of fever, chills, chest pain, palpitation, productive cough, trauma, recent ill contacts, known exposure to COVID-19. No prior admission for review. No medication listed at time of admission for reconciliation. Patient has diminished cognition but has a positive gag reflex and is able to protect her airway without difficulty at the time my evaluation. (1) Hepatic encephalopathy Current Visit: Yes Status: Acute Plan to address problem: Ammonia level, lactulose twice daily scheduled, neuro check, seizure precaution, aspiration precaution, fall precautions, repeat CMP in a.m. (2) Alcohol dependence Current Visit: Yes Status: Acute Plan to address problem: Alcohol withdrawal protocol: Thiamine, multivitamin vitamin, folic acid, CIWA protocol (3) Malnutrition Current Visit: Yes Status: Acute Qualifiers: Protein-calorie malnutrition severity: moderate Plan to address problem: Dietary supplementation, increase protein intake, (4) Hyperammonemia Current Visit: Yes Status: Acute Plan to address problem: Ammonia level, repeat ammonia level in a.m., lactulose twice daily, (5) DVT prophylaxis Current Visit: Yes Status: Acute Plan to address problem: SCD to bilateral lower extremities while in bed, 11/03/2020 -Patient is on lactulose for hepatic encephalopathy. We will check ammonia level today. Increased dose of lactulose. Patient is on 1013. -Continue with CIWA protocol for alcohol withdrawal -We will consult dietary for malnutrition -Patient has redness of left lower extremity and I put her on empiric ceftriaxone. History Interval history: Patient was seen and evaluated this morning Patient was alert and oriented, patient was on restraints There is redness on left lower extremity Hospitalist Physical - Physical exam Narrative exam: Not in cardiopulmonary distress. The patient appeared well nourished and normally developed. Vital signs as documented. Head exam is unremarkable. No scleral icterus . Neck is without jugular venous distension, thyromegaly, or carotid bruits. Lungs are clear to auscultation. Cardiac exam reveals regular rate and Rhythm. Abdominal exam reveals normal bowel sounds, nontender, no organomegaly. Extremities are nonedematous and both femoral and pedal pulses are normal. AQUATICS SPECIALIST: Patient was alert and oriented. - Constitutional Vitals: Temp Pulse Resp BP Pulse Ox 98.1 F 82 20 125/63 99 11/03/20 20:59 11/03/20 20:59 11/04/20 00:00 11/03/20 20:59 11/04/20 00:22 General appearance: Present: mild distress HEART Score - HEART Score Troponin: Troponin T < 0.010 ng/mL (0.00-0.029) 11/03/20 16:29 Results - Labs CBC & Chem 7: 11/03/20 16:29 11/04/20 05:55 Labs: Laboratory Last Values WBC 7.6 K/mm3 (4.5-11.0) 11/03/20 16: RBC 2.86 M/mm3 (3.65-5.03) L 11/03/20 16:29 Hgb 9.6 gm/dl (10.1-14.3) L 11/03/20 16:29 Hct 28.4 % (30.3-42.9) L 11/03/20 16:29 MCV 99 fl (79-97) H 11/03/20 16:29 MCH 33 pg (28-32) H 11/03/20 16:29 MCHC 34 % (30-34) 11/03/20 16:29 RDW 23.5 % (13.2-15.2) H 11/03/20 16:29 Plt Count 169 K/mm3 (140-440) 11/03/20 16:29 Lymph % (Auto) 12.9 % (13.4-35.0) L 11/03/20 16: [place] % (Auto) 15.4 % (0.0-7.3) H 11/03/20 16:29 Eos % (Auto) 1.2 % (0.0-4.3) 11/03/20 16:29 Baso % (Auto) 0.9 % (0.0-1.8) 11/03/20 16:29 Lymph # (Auto) 1.0 K/mm3 (1.2-5.4) L 11/03/20 16:29 [place] # (Auto) 1.2 K/mm3 (0.0-0.8) H 11/03/20 16:29 Eos # (Auto) 0.1 K/mm3 (0.0-0.4) 11/03/20 16:29 Baso # (Auto) 0.1 K/mm3 (0.0-0.1) 11/03/20 16:29 Seg Neutrophils % 69.6 % (40.0-70.0) 11/03/20 16: Seg Neutrophils # 5.3 K/mm3 (1.8-7.7) 11/03/20 16:29 PT 17.3 Sec. (12.2-14.9) H 11/03/20 16:29 INR 1.35 (0.87-1.13) H 11/03/20 16:29 APTT 36.0 Sec. (24.2-36.6) 11/03/20 16:29 ABG pH 7.414 (7.320-7.450) 11/03/20 17:16 POC ABG pCO2 33.8 mmHg (32.0-48.0) 11/03/20 17:16 POC ABG pO2 91.9 mmHg (83-108) 11/03/20 17:16 POC ABG HCO3 21.1 11/03/20 17:16 ABG O2 Saturation 96.5 (0-100) 11/03/20 17:16 POC ABG Base Excess -2.9 11/03/20 17:16 ABG Hemoglobin 10.5 (12.0-17.5) L 11/03/20 17:16 ABG Oxyhemoglobin 96.2 (94-98) 11/03/20 17:16 ABG Methemoglobin 0.1 (0.0-1.5) 11/03/20 17:16 ABG Sodium 139.0 mmol/L (136.0-145.0) 11/03/20 17:16 ABG Potassium 4.3 mmol/L (3.40-4.50) 11/03/20 17:16 ABG Chloride 106.0 mmol/L (98-107) 11/03/20 17:16 ABG Glucose 84 mg/dL (65-95) 11/03/20 17:16 ABG Lactate 1.13 (0.18-30.0) 11/03/20 17:16 Carboxyhemoglobin 0.2 (0.5-1.5) L 11/03/20 17:16 FiO2 % 21.0 11/03/20 17:16 Sodium 140 mmol/L (137-145) 11/04/20 05:55 Potassium 4.1 mmol/L (3.6-5.0) 11/04/20 05:55 Chloride 108.3 mmol/L (98-107) H 11/04/20 05:55 Carbon Dioxide 24 mmol/L (22-30) 11/04/20 05:55 Anion Gap 12 mmol/L 11/04/20 05:55 BUN 11 mg/dL (7-17) 11/04/20 05:55 Creatinine 0.5 mg/dL (0.6-1.2) L 11/04/20 05:55 Estimated GFR > 60 ml/min 11/04/20 05:55 BUN/Creatinine Ratio 22 % 11/04/20 05:55 Glucose 74 mg/dL (65-100) 11/04/20 05:55 POC Glucose 92 mg/dL (70-105) 11/03/20 16:01 Lactic Acid 1.30 mmol/L (0.7-2.0) 11/03/20 16:29 Calcium 8.1 mg/dL (8.4-10.2) L 11/04/20 05:55 Magnesium 1.80 mg/dL (1.7-2.3) 11/03/20 16:29 Total Bilirubin 4.20 mg/dL (0.1-1.2) H 11/04/20 05:55 AST 58 units/L (5-40) H 11/04/20 05:55 ALT 41 units/L (7-56) 11/04/20 05:55 Alkaline Phosphatase 405 units/L (35-129) H 11/04/20 05:55 Ammonia 89.0 umol/L (25-60) H 11/03/20 16:29 Total Creatine Kinase 78 units/L (30-135) 11/03/20 16:29 Troponin T < 0.010 ng/mL (0.00-0.029) 11/03/20 16:29 NT-Pro-B Natriuret Pep 416.8 pg/mL (0-900) 11/03/20 16:29 Total Protein 5.4 g/dL (6.3-8.2) L 11/04/20 05:55 Albumin 2.4 g/dL (3.9-5) L 11/04/20 05:55 Albumin/Globulin Ratio 0.8 % 11/04/20 05:55 TSH 1.400 mlU/mL (0.270-4.200) 11/03/20 16:29 Arterial Blood Glucose 84 mg/dL (65-95) 11/03/20 17:16 Urine Color Loren (Yellow) 11/03/20 17:45 Urine Turbidity Clear (Clear) 11/03/20 17:45 Urine pH 6.0 (5.0-7.0) 11/03/20 17:45 Ur Specific [place] 1.016 (1.003-1.030) 11/03/20 17:45 Urine Protein <15 mg/dl mg/dL (Negative) 11/03/20 17:45 Urine Glucose (UA) Neg mg/dL (Negative) 11/03/20 17:45 Urine Ketones Neg mg/dL (Negative) 11/03/20 17:45 Urine Blood Neg (Negative) 11/03/20 17:45 Urine Nitrite Pos (Negative) 11/03/20 17:45 Urine Bilirubin Neg (Negative) 11/03/20 17:45 Urine Urobilinogen 4.0 mg/dL (<2.0) 11/03/20 17:45 Ur Leukocyte Esterase Tr (Negative) 11/03/20 17:45 Urine WBC (Auto) 3.0 /HPF (0.0-6.0) 11/03/20 17:45 Urine RBC (Auto) 1.0 /HPF (0.0-6.0) 11/03/20 17:45 U Epithel Cells (Auto) < 1.0 /HPF (0-13.0) 11/03/20 17:45 Urine Bacteria (Auto) 2+ /HPF (Negative) 11/03/20 17:45 Urine Mucus Few /HPF 11/03/20 17:45 Salicylates < 0.3 mg/dL (2.8-20.0) L 11/03/20 16:29 Acetaminophen 5.0 ug/mL (10.0-30.0) L 11/03/20 16:29 Plasma/Serum Alcohol < 0.01 % (0-0.07) 11/03/20 16:29 Blood Type O POSITIVE 11/03/20 16:29 Antibody Screen Negative 11/03/20 16:29 Active Medications - Current Medications Current Medications: Generic Name Dose Route Start Last Admin Trade Name Freq PRN Reason Stop Dose Admin Acetaminophen 650 mg 11/03/20 18:14 Acetaminophen 325 Mg Tab PO Q4H PRN Pain MILD(1-3)/Fever >100.5/[place] Albuterol 2.5 mg 11/03/20 18:14 Albuterol 2.5 Mg/3 Ml Nebu IH Q4HRT PRN Shortness Of Breath Lactulose 20 gm 11/03/20 22:00 11/03/20 21:58 Lactulose 20 Gm/30 Ml Oral Liqd PO 11/04/20 23:59 20 gm Q12HR TERESA Administration Lorazepam 2 mg 11/03/20 19:18 Lorazepam 2 Mg/Ml Vial IV Q1HR PRN CIWA-Ar 8-15 Ondansetron HCl 4 mg 11/03/20 18:14 Ondansetron 4 Mg/2 Ml Inj IV Q8H PRN Nausea And Vomiting Sodium Chloride 10 ml 11/03/20 22:00 11/03/20 21:58 Sodium Chloride 0.9% 10 Ml Flush Syringe IV 10 ml BID TERESA Administration Sodium Chloride 10 ml 11/03/20 18:14 Sodium Chloride 0.9% 10 Ml Flush Syringe IV PRN PRN LINE FLUSH
[2020-11-04] MEDS: LACTULOSE 20 GM/30 ML ORAL LIQD PO SCH ×2 (11:13→18:17)
[2020-11-04] MEDS: cefTRIAXone/NS 2 GM/100 ML 2 GM/100 ML BAG IV SCH (11:13)
--- NOTE | 2020-11-04 11:15 | Electrocardiograph Report ---
[facility] Test Date: 2020-11-03 Test Time: 16:33:53 Pat Name: CHARITO JOHNSON Department: Room: A372 1 Gender: F Senior Credit Analyst: CLT : 1960 Requested By: KAYLEE SORENSON Order Number: [id number] Reading MD: Osvaldo Pickett Measurements Intervals [place] Rate: 78 P: 66 WV: 179 QRS: 56 QRSD: 74 T: 75 QT: 379 QTc: 432 Interpretive Statements Sinus rhythm Probable left atrial enlargement nonspecfic st-t No previous ECG available for comparison Electronically Signed On 11-04-2020 11:15:03 EDT by Osvaldo Pickett
[2020-11-04] MEDS: ACETAMINOPHEN 325 MG TAB PO PRN (11:18)
[2020-11-04] MEDS: LORazepam 2 MG/ML VIAL IV PRN (22:26)
[2020-11-05] MEDS: LACTULOSE 20 GM/30 ML ORAL LIQD PO SCH ×5 (01:36→23:43)
--- NOTE | 2020-11-05 07:25 | Progress Note ---
Assessment and Plan Assessment and plan: 59 YO Female resident at [facility] for ETOH Detoxification with ETOH Dependence, ETOH Liver Disease, Psychosis presents to ED for evaluation. Patient is confused and lethargic at the time my evaluation is unable to provide detailed history. Patient history taken from EMS staff, ED staff, as well as pablo augustin with staff. Patient was found to have increased lethargy as well as confusion over the past 1 day with persistent symptoms over the same timeframe as per staff. EMS was notified and upon arrival the patient was found to be in distress and subsequently transported to [facility] for further care and evaluation of the aforementioned symptoms. The patient was seen and evaluated in the emergency department. All lab and imaging studies reviewed. Patient found to have hepatic encephalopathy with increased bilirubin level, moderate malnutrition. Patient placed in observation status and admitted to medical floor and treated with supportive care due to increased risk of worsening symptoms. No reports of fever, chills, chest pain, palpitation, productive cough, trauma, recent ill contacts, known exposure to COVID-19. No prior admission for review. No medication listed at time of admission for reconciliation. Patient has diminished cognition but has a positive gag reflex and is able to protect her airway without difficulty at the time my evaluation. (1) Hepatic encephalopathy Current Visit: Yes Status: Acute Plan to address problem: Ammonia level, lactulose twice daily scheduled, neuro check, seizure precaution, aspiration precaution, fall precautions, repeat CMP in a.m. (2) Alcohol dependence Current Visit: Yes Status: Acute Plan to address problem: Alcohol withdrawal protocol: Thiamine, multivitamin vitamin, folic acid, CIWA protocol (3) Malnutrition Current Visit: Yes Status: Acute Qualifiers: Protein-calorie malnutrition severity: moderate Plan to address problem: Dietary supplementation, increase protein intake, (4) Hyperammonemia Current Visit: Yes Status: Acute Plan to address problem: Ammonia level, repeat ammonia level in a.m., lactulose twice daily, (5) DVT prophylaxis Current Visit: Yes Status: Acute Plan to address problem: SCD to bilateral lower extremities while in bed, 11/03/2020 -Patient is on lactulose for hepatic encephalopathy. We will check ammonia level today. Increased dose of lactulose. Patient is on 1013. -Continue with CIWA protocol for alcohol withdrawal -We will consult dietary for malnutrition -Patient has redness of left lower extremity and I put her on empiric ceftriaxone. 11/04/2020 -Continue lactulose for hepatic encephalopathy. Ammonia level yesterday was 100. Will check today. -Continue with [facility] protocol for alcohol withdrawal. -Patient is from [place] and I put a consult for mental health evaluation -Patient has cellulitis of the left lower extremity and urine culture grew gram- positive santhosh; patient is on IV ceftriaxone. Will follow identification and sensitivity of the bacteria -PT evaluation History Interval history: Patient was seen and evaluated this morning Patient was alert and oriented, patient was on restraints There is redness on left lower extremity Patient has restraints on her left arm because the patient signed to get out of bed Hospitalist Physical - Physical exam Narrative exam: Not in cardiopulmonary distress. The patient appeared well nourished and normally developed. Vital signs as documented. Head exam is unremarkable. No scleral icterus . Neck is without jugular venous distension, thyromegaly, or carotid bruits. Lungs are clear to auscultation. Cardiac exam reveals regular rate and Rhythm. Abdominal exam reveals normal bowel sounds, nontender, no organomegaly. Extremities are nonedematous and both femoral and pedal pulses are normal. 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 - Constitutional Vitals: Temp Pulse Resp BP Pulse Ox 98.4 F 90 18 153/78 98 11/04/20 22:28 11/04/20 22:28 11/04/20 22:28 11/04/20 22:28 11/04/20 22:28 General appearance: Present: mild distress HEART Score - HEART Score Troponin: Troponin T < 0.010 ng/mL (0.00-0.029) 11/03/20 16:29 Results - Labs CBC & Chem 7: 11/03/20 16:29 11/05/20 07:25 Labs: Laboratory Last Values WBC 7.6 K/mm3 (4.5-11.0) 11/03/20 16: RBC 2.86 M/mm3 (3.65-5.03) L 11/03/20 16:29 Hgb 9.6 gm/dl (10.1-14.3) L 11/03/20 16:29 Hct 28.4 % (30.3-42.9) L 11/03/20 16:29 MCV 99 fl (79-97) H 11/03/20 16:29 MCH 33 pg (28-32) H 11/03/20 16:29 MCHC 34 % (30-34) 11/03/20 16:29 RDW 23.5 % (13.2-15.2) H 11/03/20 16:29 Plt Count 169 K/mm3 (140-440) 11/03/20 16:29 Lymph % (Auto) 12.9 % (13.4-35.0) L 11/03/20 16:29 [place] % (Auto) 15.4 % (0.0-7.3) H 11/03/20 16:29 Eos % (Auto) 1.2 % (0.0-4.3) 11/03/20 16:29 Baso % (Auto) 0.9 % (0.0-1.8) 11/03/20 16:29 Lymph # (Auto) 1.0 K/mm3 (1.2-5.4) L 11/03/20 16:29 [place] # (Auto) 1.2 K/mm3 (0.0-0.8) H 11/03/20 16:29 Eos # (Auto) 0.1 K/mm3 (0.0-0.4) 11/03/20 16:29 Baso # (Auto) 0.1 K/mm3 (0.0-0.1) 11/03/20 16:29 Seg Neutrophils % 69.6 % (40.0-70.0) 11/03/20 16:29 Seg Neutrophils # 5.3 K/mm3 (1.8-7.7) 11/03/20 16:29 PT 17.3 Sec. (12.2-14.9) H 11/03/20 16:29 INR 1.35 (0.87-1.13) H 11/03/20 16:29 APTT 36.0 Sec. (24.2-36.6) 11/03/20 16:29 ABG pH 7.414 (7.320-7.450) 11/03/20 17:16 POC ABG pCO2 33.8 mmHg (32.0-48.0) 11/03/20 17:16 POC ABG pO2 91.9 mmHg (83-108) 11/03/20 17:16 POC ABG HCO3 21.1 11/03/20 17:16 ABG O2 Saturation 96.5 (0-100) 11/03/20 17:16 POC ABG Base Excess -2.9 11/03/20 17:16 ABG Hemoglobin 10.5 (12.0-17.5) L 11/03/20 17:16 ABG Oxyhemoglobin 96.2 (94-98) 11/03/20 17:16 ABG Methemoglobin 0.1 (0.0-1.5) 11/03/20 17:16 ABG Sodium 139.0 mmol/L (136.0-145.0) 11/03/20 17:16 ABG Potassium 4.3 mmol/L (3.40-4.50) 11/03/20 17:16 ABG Chloride 106.0 mmol/L (98-107) 11/03/20 17:16 ABG Glucose 84 mg/dL (65-95) 11/03/20 17:16 ABG Lactate 1.13 (0.18-30.0) 11/03/20 17:16 Carboxyhemoglobin 0.2 (0.5-1.5) L 11/03/20 17:16 FiO2 % 21.0 11/03/20 17:16 Sodium 140 mmol/L (137-145) 11/04/20 05:55 Potassium 4.1 mmol/L (3.6-5.0) 11/04/20 05:55 Chloride 108.3 mmol/L (98-107) H 11/04/20 05:55 Carbon Dioxide 24 mmol/L (22-30) 11/04/20 05:55 Anion Gap 12 mmol/L 11/04/20 05:55 BUN 11 mg/dL (7-17) 11/04/20 05:55 Creatinine 0.5 mg/dL (0.6-1.2) L 11/04/20 05:55 Estimated GFR > 60 ml/min 11/04/20 05:55 BUN/Creatinine Ratio 22 % 11/04/20 05:55 Glucose 74 mg/dL (65-100) 11/04/20 05:55 POC Glucose 92 mg/dL (70-105) 11/03/20 16:01 Lactic Acid 1.30 mmol/L (0.7-2.0) 11/03/20 16:29 Calcium 8.1 mg/dL (8.4-10.2) L 11/04/20 05:55 Magnesium 1.80 mg/dL (1.7-2.3) 11/03/20 16:29 Total Bilirubin 4.20 mg/dL (0.1-1.2) H 11/04/20 05:55 AST 58 units/L (5-40) H 11/04/20 05:55 ALT 41 units/L (7-56) 11/04/20 05:55 Alkaline Phosphatase 405 units/L (35-129) H 11/04/20 05:55 Ammonia 100.0 umol/L (25-60) H 11/04/20 09:04 Total Creatine Kinase 78 units/L (30-135) 11/03/20 16:29 Troponin T < 0.010 ng/mL (0.00-0.029) 11/03/20 16:29 NT-Pro-B Natriuret Pep 416.8 pg/mL (0-900) 11/03/20 16:29 Total Protein 5.4 g/dL (6.3-8.2) L 11/04/20 05:55 Albumin 2.4 g/dL (3.9-5) L 11/04/20 05:55 Albumin/Globulin Ratio 0.8 % 11/04/20 05:55 TSH 1.400 mlU/mL (0.270-4.200) 11/03/20 16:29 Arterial Blood Glucose 84 mg/dL (65-95) 11/03/20 17:16 Urine Color Loren (Yellow) 11/03/20 17:45 Urine Turbidity Clear (Clear) 11/03/20 17:45 Urine pH 6.0 (5.0-7.0) 11/03/20 17:45 Ur Specific [place] 1.016 (1.003-1.030) 11/03/20 17:45 Urine Protein <15 mg/dl mg/dL (Negative) 11/03/20 17:45 Urine Glucose (UA) Neg mg/dL (Negative) 11/03/20 17:45 Urine Ketones Neg mg/dL (Negative) 11/03/20 17:45 Urine Blood Neg (Negative) 11/03/20 17:45 Urine Nitrite Pos (Negative) 11/03/20 17:45 Urine Bilirubin Neg (Negative) 11/03/20 17:45 Urine Urobilinogen 4.0 mg/dL (<2.0) 11/03/20 17:45 Ur Leukocyte Esterase Tr (Negative) 11/03/20 17:45 Urine WBC (Auto) 3.0 /HPF (0.0-6.0) 11/03/20 17:45 Urine RBC (Auto) 1.0 /HPF (0.0-6.0) 11/03/20 17:45 U Epithel Cells (Auto) < 1.0 /HPF (0-13.0) 11/03/20 17:45 Urine Bacteria (Auto) 2+ /HPF (Negative) 11/03/20 17:45 Urine Mucus Few /HPF 11/03/20 17:45 Salicylates < 0.3 mg/dL (2.8-20.0) L 11/03/20 16:29 Acetaminophen 5.0 ug/mL (10.0-30.0) L 11/03/20 16:29 Plasma/Serum Alcohol < 0.01 % (0-0.07) 11/03/20 16:29 Blood Type O POSITIVE 11/03/20 16:29 Antibody Screen Negative 11/03/20 16:29 Microbiology: Microbiology 11/03/20 17:45 Urine,Catheterized - Straight Catheter Urine Culture - Preliminary Gram Negative Santhosh Barba/IV: Voiding Method Bedpan Active Medications - Current Medications Current Medications: Generic Name Dose Route Start Last Admin Trade Name Freq PRN Reason Stop Dose Admin Acetaminophen 650 mg 11/03/20 18:14 11/04/20 11:18 Acetaminophen 325 Mg Tab PO 650 mg Q4H PRN Administration Pain MILD(1-3)/Fever >100.5/[place]ADSWORTH Albuterol 2.5 mg 11/03/20 18:14 Albuterol 2.5 Mg/3 Ml Nebu IH Q4HRT PRN Shortness Of Breath Ceftriaxone Sodium 2 gm in 100 mls @ 200 mls/hr 11/04/20 10:30 11/04/20 21:46 Rocephin/Ns 2 Gm/100 Ml IV Infused Q24HR TERESA Infusion Lactulose 20 gm 11/04/20 10:30 11/05/20 06:19 Lactulose 20 Gm/30 Ml Oral Liqd PO 20 gm Q6HR TERESA Administration Lorazepam 2 mg 11/03/20 19:18 11/04/20 22:26 Lorazepam 2 Mg/Ml Vial IV 2 mg Q1HR PRN Administration Bartolo 8-15 Ondansetron HCl 4 mg 11/03/20 18:14 Ondansetron 4 Mg/2 Ml Inj IV Q8H PRN Nausea And Vomiting Sodium Chloride 10 ml 11/03/20 22:00 11/04/20 21:47 Sodium Chloride 0.9% 10 Ml Flush Syringe IV Not Given BID TERESA Sodium Chloride 10 ml 11/03/20 18:14 Sodium Chloride 0.9% 10 Ml Flush Syringe IV PRN PRN LINE FLUSH
[2020-11-05 08:52] LABS: Blood Urea Nitrogen 11 mg/dL (7-17); Calcium 8.4 mg/dL (8.4-10.2); Hemolysis Index 0
[2020-11-05 08:56] LABS: BUN/Creatinine Ratio 28
[2020-11-05] MEDS: cefTRIAXone/NS 2 GM/100 ML 2 GM/100 ML BAG IV SCH (09:56)
[2020-11-05] MEDS: LORazepam 2 MG/ML VIAL IV PRN ×2 (15:52→21:09)
--- NOTE | 2020-11-05 20:42 | Event Note ---
Date: 11/05/20 The patient was seen confused, unable to answer questions and in restraints;unable to assess at assess at this time.
[2020-11-06] MEDS: LORazepam 2 MG/ML VIAL IV PRN (04:57)
[2020-11-06] MEDS: LACTULOSE 20 GM/30 ML ORAL LIQD PO SCH ×3 (06:13→18:22)
[2020-11-06] MEDS: cefTRIAXone/NS 2 GM/100 ML 2 GM/100 ML BAG IV SCH (09:45)
--- NOTE | 2020-11-06 13:27 | Progress Note ---
Assessment and Plan (1) Hepatic encephalopathy Current Visit: Yes Status: Acute Plan to address problem: Ammonia level, lactulose twice daily scheduled, neuro check, seizure precaution, aspiration precaution, fall precautions, repeat CMP in a.m. BMP stable will repeat in a.m. however patient remains agitated aggressive. Rerestraints. Continue CIWA protocol. (2) Alcohol dependence Current Visit: Yes Status: Acute Plan to address problem: Alcohol withdrawal protocol: Thiamine, multivitamin vitamin, folic acid, CIWA protocol Patient shows evidence of alcohol withdrawal with mood. (3) Malnutrition Current Visit: Yes Status: Acute Qualifiers: Protein-calorie malnutrition severity: moderate Plan to address problem: Dietary supplementation, increase protein intake, (4) Hyperammonemia Current Visit: Yes Status: Acute Plan to address problem: Ammonia level, repeat ammonia level in a.m., lactulose twice daily, (5) DVT prophylaxis Current Visit: Yes Status: Acute Plan to address problem: SCD to bilateral lower extremities while in bed, Subjective Date of service: 11/06/20 Principal diagnosis: Altered mental status Interval history: 59 YO Female resident at [place] for ETOH Detoxification with ETOH Dependence, ETOH Liver Disease, Psychosis presents to ED for evaluation. Patient is confused and lethargic at the time my evaluation is unable to provide detailed history. Patient history taken from EMS staff, ED staff, as well as review with staff. Patient was found to have increased lethargy as well as confusion over the past 1 day with persistent symptoms over the same timeframe as per staff. EMS was notified and upon arrival the patient was found to be in distress and subsequently transported to [facility] for further care and evaluation of the aforementioned symptoms. The patient was seen and evaluated in the emergency department. All lab and imaging studies reviewed. Patient found to have hepatic encephalopathy with increased bilirubin level, moderate malnutrition. Patient placed in observation status and [facility] and treated with supportive care due to increased risk of worsening symptoms. No reports of fever, chills, chest pain, palpitation, productive cough, trauma, recent ill contacts, known exposure to COVID-19. No prior admission for review. No medication listed at time of admission for reconciliation. Patient has diminished cognition but has a positive gag reflex and is able to protect her airway without difficulty at the time my evaluation. 11/06/2020. Patient will require restraints again. Attempted to get up take every line out. Patient attempted to take covers off. Could not calm down very agitated. Evidence of withdrawal. Objective - Constitutional Vitals: Vital Signs - 12hr 11/06/20 11/06/20 04:55 08:26 Temperature 98.5 F Pulse Rate 104 H Respiratory 18 Rate Blood Pressure 142/79 O2 Sat by Pulse 100 99 Oximetry General appearance: Present: no acute distress, well-nourished - EENT Eyes: PERRL, EOM intact ENT: hearing intact, clear oral mucosa Ears: bilateral: normal - Neck Neck: supple, normal ROM - Respiratory Respiratory effort: normal Respiratory: bilateral: CTA - Breasts Breasts: normal - Cardiovascular Rhythm: regular Heart Sounds: Present: S1 & S2. Absent: gallop, rub Extremities: pulses intact, No edema, normal color, Full ROM - Gastrointestinal General gastrointestinal: Present: soft, non-tender, non-distended, normal bowel sounds - Genitourinary Female genitourinary: normal - Integumentary Integumentary: clear, warm, dry - Musculoskeletal Musculoskeletal: 1, strength equal bilaterally - Neurologic Neurologic: moves all extremities - Psychiatric Psychiatric: memory intact, appropriate mood/affect, intact judgment & insight - Labs CBC & Chem 7: 11/03/20 16:29 11/05/20 07:25 HEART Score - HEART Score Troponin: Troponin T < 0.010 ng/mL (0.00-0.029) 11/03/20 16:29
--- NOTE | 2020-11-06 15:17 | Event Note ---
Date: 11/06/20 Patient was seen today but unable to assess to drowsiness.
[2020-11-07] MEDS: LACTULOSE 20 GM/30 ML ORAL LIQD PO SCH ×5 (01:01→22:43)
[2020-11-07 08:49] LABS: Blood Urea Nitrogen 7 mg/dL (7-17); Calcium 7.8 mg/dL (8.4-10.2); Hemolysis Index 11
[2020-11-07 08:58] LABS: BUN/Creatinine Ratio 23
[2020-11-07] MEDS: cefTRIAXone/NS 2 GM/100 ML 2 GM/100 ML BAG IV SCH (10:00)
--- NOTE | 2020-11-07 12:00 | Progress Note ---
Assessment and Plan (1) Hepatic encephalopathy Current Visit: Yes Status: Acute Plan to address problem: Ammonia level, lactulose twice daily scheduled, neuro check, seizure precaution, aspiration precaution, fall precautions, repeat CMP in a.m. BMP stable will repeat in a.m. however patient remains agitated aggressive. Rerestraints. Continue CIWA protocol. Hepatic encephalopathy has resolved. (2) Alcohol dependence Current Visit: Yes Status: Acute Plan to address problem: Alcohol withdrawal protocol: Thiamine, multivitamin vitamin, folic acid, CIWA protocol Patient shows evidence of alcohol withdrawal with mood. Most of patient's problem is secondary to alcohol appears to be chronic alcoholism. Patient unsteady on her feet secondary to being in bed prolonged hospitalization and on CIWA protocol. Should be able to be discharged soon. Still attempting to call family member. (3) Malnutrition Current Visit: Yes Status: Acute Qualifiers: Protein-calorie malnutrition severity: moderate Plan to address problem: Dietary supplementation, increase protein intake, Patient eating well ate breakfast fine (4) Hyperammonemia Current Visit: Yes Status: Acute Plan to address problem: Ammonia level, repeat ammonia level in a.m., lactulose twice daily, (5) DVT prophylaxis Current Visit: Yes Status: Acute Plan to address problem: SCD to bilateral lower extremities while in bed, Subjective Date of service: 11/07/20 Principal diagnosis: Altered mental status Interval history: 59 YO Female resident at [place] for ETOH Detoxification with ETOH Depen dence, ETOH Liver Disease, Psychosis presents to ED for evaluation. Patient is confused and lethargic at the time my evaluation is unable to provide detailed history. Patient history taken from EMS staff, ED staff, as well as review with staff. Patient was found to have increased lethargy as well as confusion over the past 1 day with persistent symptoms over the same timeframe as per staff. EMS was notified and upon arrival the patient was found to be in distress and subsequently transported to [facility] for further care and evaluation of the aforementioned symptoms. The patient was seen and evaluated in the emergency department. All lab and imaging studies reviewed. Patient found to have h epatic encephalopathy with increased bilirubin level, moderate malnutrition. Patient placed in observation status and admitted to medical floor and treated with supportive care due to increased risk of worsening symptoms. No reports of fever, chills, chest pain, palpitation, productive cough, trauma, recent ill contacts, known exposure to COVID-19. No prior admission for review. No medication listed at time of admission for reconciliation. Patient has diminished cognition but has a positive gag reflex and is able to protect her airway without difficulty at the time my evaluation. 11/06/2020. Patient will require restraints again. Attempted to get up take every line out. Patient attempted to take covers off. Could not calm down very agitated. Evidence of withdrawal. 11/07/2020. Patient awake up but remains confused. Able to tell me she lives in [place] with sister however unable to say her phone number. Has not been able to get in touch with family member at this time. Patient also stated she is spent some time in [place] recently. Answer questions appropriately. Patient did have time when she got up with therapy and was unsteady on her feet. Objective - Constitutional General appearance: Present: no acute distress, well-nourished - EENT Eyes: PERRL, EOM intact ENT: hearing intact, clear oral mucosa Ears: bilateral: normal - Neck Neck: supple, normal ROM - Respiratory Respiratory effort: normal Respiratory: bilateral: CTA - Breasts Breasts: deferred, normal - Cardiovascular Rhythm: regular Heart Sounds: Present: S1 & S2. Absent: gallop, rub Extremities: No edema, normal color, Full ROM Extremity abnormal: other (Generalized weakness) - Gastrointestinal General gastrointestinal: Present: soft, non-tender, non-distended, normal bowel sounds - Genitourinary Female genitourinary: normal - Integumentary Integumentary: clear, warm, dry - Musculoskeletal Musculoskeletal: 1, strength equal bilaterally - Neurologic Neurologic: moves all extremities, other (No focal neurologic deficits noncombative patient just attempt to hold on.) - Psychiatric Psychiatric: other (Poor judgment however appropriate.) - Labs CBC & Chem 7: 11/03/20 16:29 11/07/20 07:28 Labs: Abnormal lab results 11/07/20 11/07/20 Range/Units 07:28 07:51 Creatinine 0.3 L (0.6-1.2) mg/dL Calcium 7.8 L (8.4-10.2) mg/dL Ammonia 72.0 H (25-60) umol/L HEART Score - HEART Score Troponin: Troponin T < 0.010 ng/mL (0.00-0.029) 11/03/20 16:29
--- NOTE | 2020-11-07 12:10 | Consultation ---
History of Present Illness - Reason for Consult Consult date: 11/07/20 Reason for consult: AMS - History of Present Psychiatric Illness Per Nurse Note: Bedside report received from the outgoing nurse,pt awake alert and oriented 3, on both wrist restraint,will cont to assess and document per flowsheet. The patient was seen today, she was brought from [place] for Alcohol detox. She is lying in bed awake. She is no longer in restraints at this time. She is a/x 2. She tells me that she feels much better, but states she gets depressed sometimes. When asked why was she at [place]. The patient replies "I think because of the way I talk to people. My mouth gets me in trouble." She denies SI/HI, she replies "no, nobody is worth me doing any of that." She denies ever having an attempt of suicide. The patient denies hallucinations. PAST PSYCHIATRIC HISTORY Diagnoses: Depression, schizophrenia, anxiety Suicide attempts or Self-harm behavior: Yes Prior psychiatric hospitalizations: Yes Substance Abuse history: denies Previous psychiatric medications tried: ebenezer hassanonenal Outpatient treatment: yes SOCIAL HISTORY Marital Status: Single Living Arrangements: alone Employment Status: Disabled Access to guns/weapons: Denies Education: high school History of Abuse: Denies Legal History: None reported REVIEW OF SYSTEMS Constitutional: Negative for weight loss ENT: Negative for stridor Respiratory: Negative for cough or hemoptysis All other systems reviewed and are negative MENTAL STATUS EXAMINATION General Appearance and Behavior: Age appropriate, dressed appropriately, calm and cooperative Cooperation: Participating Psychomotor Behavior: psychomotor normal Mood: Depressed, anxious Affect and affective range: Congruent with stated mood Thought Process: impaired Thought Content: None Speech: Normal volume, Regular rate and rhythm, Intellectual Functioning: Average Suicidal Ideation: Denies Homicidal Ideation: Denies Hallucinations: Denies Delusions: None elicited Impulse Control: Limited Insight and Judgment: Limited insight and judgment, Memory: Limited Attention: Undivided Orientation: Alert, oriented Assessment and Plan (1) Bipolar Treatment Plan Restart Zyprexa 5mg po daily Sitter: Refer to primary Medical: Per primary Disposition: Do not recommend acute psychiatric inpatient treatment Will follow for psych progress and med management Case staffed with Dr. Sky. Medications and Allergies Allergies Allergy/AdvReac Type Severity Reaction Status Date / Time No Known Allergies Allergy Verified 11/03/20 16:05 Active Meds: Active Medications Acetaminophen (Acetaminophen 325 Mg Tab) 650 mg PO Q4H PRN PRN Reason: Pain MILD(1-3)/Fever >100.5/[place]ADSWORTH Last Admin: 11/04/20 11:18 Dose: 650 mg Documented by: Albuterol (Albuterol 2.5 Mg/3 Ml Nebu) 2.5 mg IH Q4HRT PRN PRN Reason: Shortness Of Breath Last Admin: 11/05/20 21:18 Dose: 2.5 mg Documented by: Ceftriaxone Sodium (Rocephin/Ns 2 Gm/100 Ml) 2 gm in 100 mls @ 200 mls/hr IV Q24HR TERESA Stop: 11/10/20 10:29 Last Admin: 11/07/20 10:00 Dose: 200 mls/hr Documented by: Lactulose (Lactulose 20 Gm/30 Ml Oral Liqd) 20 gm PO Q6HR TERESA Last Admin: 11/07/20 11:54 Dose: 20 gm Documented by: Lorazepam (Lorazepam 2 Mg/Ml Vial) 2 mg IV Q1HR PRN PRN Reason: CIWA-Ar 8-15 Last Admin: 11/06/20 04:57 Dose: 2 mg Documented by: Ondansetron HCl (Ondansetron 4 Mg/2 Ml Inj) 4 mg IV Q8H PRN PRN Reason: Nausea And Vomiting Sodium Chloride (Sodium Chloride 0.9% 10 Ml Flush Syringe) 10 ml IV BID TERESA Last Admin: 11/07/20 10:01 Dose: 10 ml Documented by: Sodium Chloride (Sodium Chloride 0.9% 10 Ml Flush Syringe) 10 ml IV PRN PRN PRN Reason: LINE FLUSH Last Admin: 11/06/20 04:57 Dose: 10 ml Documented by: Mental Status Exam - Vital signs Last Vital Signs Temp 99.3 F 11/06/20 22:54 Pulse 98 H 11/06/20 22:54 Resp 18 11/06/20 22:54 BP 115/66 11/06/20 22:54 Pulse Ox 98 11/06/20 22:54 Results Result Diagrams: 11/03/20 16:29 11/07/20 07:28 Abnormal lab results 11/07/20 11/07/20 Range/Units 07: 07:51 Creatinine 0.3 L (0.6-1.2) mg/dL Calcium 7.8 L (8.4-10.2) mg/dL Ammonia 72.0 H (25-60) umol/L All other labs normal.
[2020-11-07] MEDS: ACETAMINOPHEN 325 MG TAB PO PRN (23:42)
[2020-11-08] MEDS: LACTULOSE 20 GM/30 ML ORAL LIQD PO SCH ×5 (00:18→23:49)
[2020-11-08] MEDS: LORazepam 2 MG/ML VIAL IV PRN (04:24)
[2020-11-08] MEDS: cefTRIAXone/NS 2 GM/100 ML 2 GM/100 ML BAG IV SCH (09:14)
--- NOTE | 2020-11-08 10:16 | Progress Note ---
Assessment and Plan (1) Hepatic encephalopathy Current Visit: Yes Status: Acute Plan to address problem: Ammonia level, lactulose twice daily scheduled, neuro check, seizure precaution, aspiration precaution, fall precautions, repeat CMP in a.m. BMP stable will repeat in a.m. however patient remains agitated aggressive. No restraints Rerestraints. Patient now eating herself. Continue CIWA protocol. Hepatic encephalopathy has resolved. Patient doing well stabilized to transfer to inpatient psych unit if required. Restraints needed (2) Alcohol dependence Current Visit: Yes Status: Acute Plan to address problem: Alcohol withdrawal protocol: Thiamine, multivitamin vitamin, folic acid, CIWA protocol Patient shows evidence of alcohol withdrawal with mood. Most of patient's problem is secondary to alcohol appears to be chronic alcoholism. Patient unsteady on her feet secondary to being in bed prolonged hospitalization and on CIWA protocol. Should be able to be discharged soon. Still attempting to call family member. (3) Malnutrition Current Visit: Yes Status: Acute Qualifiers: Protein-calorie malnutrition severity: moderate Plan to address problem: Dietary supplementation, increase protein intake, Patient eating well ate breakfast fine Continues to eat well. (4) Hyperammonemia Current Visit: Yes Status: Acute Plan to address problem: Ammonia level, repeat ammonia level in a.m., lactulose twice daily, (5) DVT prophylaxis Current Visit: Yes Status: Acute Plan to address problem: SCD to bilateral lower extremities while in bed, Subjective Date of service: 11/08/20 Principal diagnosis: Altered mental status Interval history: 59 YO Female resident at [facility] for ETOH Detoxification with ETOH Dependence, ETOH Liver Disease, Psychosis presents to ED for evaluation. Patient is confused and lethargic at the time my evaluation is unable to provide detailed history. Patient history taken from EMS staff, ED staff, as well as review with staff. Patient was found to have increased lethargy as well as confusion over the past 1 day with persistent symptoms over the same timeframe as per staff. EMS was notified and upon arrival the patient was found to be in distress and subsequently transported to [facility] for further care and evaluation of the aforementioned symptoms. The patient was seen and evaluated in the emergency department. All lab and imaging studies reviewed. Patient found to have hepatic encephalopathy with increased bilirubin level, moderate malnutrition. Patient placed in observation status and admitted to medical floor and treated with supportive care due to increased risk of worsening symptoms. No reports of fever, chills, chest pain, palpitation, productive cough, trauma, recent ill contacts, known exposure to COVID-19. No prior admission for review. No medication listed at time of admission for cliff nciliation. Patient has diminished cognition but has a positive gag reflex and is able to protect her airway without difficulty at the time my evaluation. 11/06/2020. Patient will require restraints again. Attempted to get up take every line out. Patient attempted to take covers off. Could not calm down very agitated. Evidence of withdrawal. 11/07/2020. Patient awake up but remains confused. Able to tell me she lives in [place] with sister however unable to say her phone number. Has not been able to get in touch with family member at this time. Patient also stated she is spent some time in [place] recently. Answer questions appropriately. Patient did have time when she got up with therapy and was unsteady on her feet. 11/08/2020. Patient remains confused. Still confused about how she got here from [place]. And where she is going. Patient much alert no longer in alcohol withdrawal or any withdrawal. Stable for transfer to inpatient psych if needed. Objective - Constitutional Vitals: Vital Signs - 12hr 11/08/20 04:41 Temperature 98.5 F Pulse Rate 95 H Respiratory 20 Rate Blood Pressure 143/89 O2 Sat by Pulse 96 Oximetry General appearance: Present: no acute distress, well-nourished - EENT Eyes: PERRL, EOM intact ENT: hearing intact, clear oral mucosa Ears: bilateral: normal - Neck Neck: supple, normal ROM - Respiratory Respiratory effort: normal Respiratory: bilateral: CTA - Breasts Breasts: normal - Cardiovascular Rhythm: regular Heart Sounds: Present: S1 & S2. Absent: gallop, rub Extremities: pulses intact, No edema, normal color, Full ROM - Gastrointestinal General gastrointestinal: Present: soft, non-tender, non-distended, normal bowel sounds - Genitourinary Female genitourinary: normal - Integumentary Integumentary: clear, warm, dry - Musculoskeletal Musculoskeletal: 1, strength equal bilaterally - Neurologic Neurologic: moves all extremities - Psychiatric Psychiatric: memory intact, appropriate mood/affect, intact judgment & insight - Labs CBC & Chem 7: 11/03/20 16:29 11/07/20 07:28 HEART Score - HEART Score Troponin: Troponin T < 0.010 ng/mL (0.00-0.029) 11/03/20 16:29
--- NOTE | 2020-11-08 11:26 | Progress Note ---
Subjective - Reason for Consult Consult date: 11/08/20 Reason for consult: confusion - Chief Complaint Chief complaint: The patient was seen today, she is a/o x 2 to 3. She gets the day of the month wrong. When asked who was the [place] President, the patient states "Biden, unfortunately." She is polite and pleasant. When asked how she was feeling, the patient replies "I feel okay, actually, just tired." She denies SI/HI. She laughs and says "maybe I might kill someone." She then laughs again and says "just kidding. I wouldn't." She denies hallucinations of any kind. REVIEW OF SYSTEMS Constitutional: Negative for weight loss ENT: Negative for stridor Respiratory: Negative for cough or hemoptysis All other systems reviewed and are negative MENTAL STATUS EXAMINATION General Appearance and Behavior: Age appropriate, dressed appropriately, calm and cooperative Cooperation: Participating Psychomotor Behavior: psychomotor normal Mood: "I feel okay, acutally, just tired." Affect and affective range: Congruent with stated mood Thought Process: impaired Thought Content: None Speech: Normal volume, Regular rate and rhythm, Intellectual Functioning: Average Suicidal Ideation: Denies Homicidal Ideation: Denies Hallucinations: Denies Delusions: None elicited Impulse Control: Limited Insight and Judgment: Limited insight and judgment, Memory: Limited Attention: Undivided Orientation: Alert, oriented Assessment and Plan (1) Bipolar Treatment Plan Zyprexa 5mg po daily Sitter: Refer to primary Medical: Per primary Disposition: Do not recommend acute psychiatric inpatient treatment Will follow for psych progress and med management Case staffed with Dr. Sky. Mental Status Exam - Vital signs Last Vital Signs Temp 98.5 F 11/08/20 04:41 Pulse 95 H 11/08/20 04:41 Resp 20 11/08/20 04:41 BP 143/89 11/08/20 04:41 Pulse Ox 96 11/08/20 04:41
[2020-11-08] MEDS: ONDANSETRON 4 MG/2 ML INJ IV PRN (16:27)
[2020-11-08] MEDS ORDERED: ALUM-MAG HYDROXIDE-SIMETHICONE 200-200-20MG/5ML ORAL LIQD 30 ML PO PRN (23:14)
[2020-11-08] MEDS: ACETAMINOPHEN 325 MG TAB PO PRN (23:49)
[2020-11-09] MEDS: LORazepam 2 MG/ML VIAL IV PRN ×3 (01:01→23:31)
[2020-11-09] MEDS: LACTULOSE 20 GM/30 ML ORAL LIQD PO SCH ×4 (05:35→23:31)
[2020-11-09] MEDS: cefTRIAXone/NS 2 GM/100 ML 2 GM/100 ML BAG IV SCH (10:05)
[2020-11-09] MEDS: ONDANSETRON 4 MG/2 ML INJ IV PRN (10:16)
[2020-11-09] MEDS: ACETAMINOPHEN 325 MG TAB PO PRN (10:17)
--- NOTE | 2020-11-09 11:03 | Progress Note ---
Assessment and Plan (1) Hepatic encephalopathy Current Visit: Yes Status: Acute Plan to address problem: Ammonia level, lactulose twice daily scheduled, neuro check, seizure precaution, aspiration precaution, fall precautions, repeat CMP in a.m. No longer aggressive no longer requiring restraints. No restraints Rerestraints. Patient now eating herself. Back at baseline. Discontinue CIWA protocol. Hepatic encephalopathy has resolved. Patient doing well stabilized to transfer to inpatient psych unit if required. No restraints needed Stable for discharge. (2) Alcohol dependence Current Visit: Yes Status: Acute Plan to address problem: Alcohol withdrawal protocol: Thiamine, multivitamin vitamin, folic acid, CIWA protocol Patient shows evidence of alcohol withdrawal with mood. Most of patient's problem is secondary to alcohol appears to be chronic alcoholi sm. Patient unsteady on her feet secondary to being in bed prolonged hospitalization and on CIWA protocol. Stable for discharge . Still attempting to call family member. (3) Malnutrition Current Visit: Yes Status: Acute Qualifiers: Protein-calorie malnutrition severity: moderate Plan to address problem: Dietary supplementation, increase protein intake, Patient eating well ate breakfast fine Continues to eat well. Resolved. (4) Hyperammonemia Current Visit: Yes Status: Acute Plan to address problem: Ammonia level, repeat ammonia level in a.m., lactulose twice daily, (5) DVT prophylaxis Current Visit: Yes Status: Acute Plan to address problem: SCD to bilateral lower extremities while in bed, Subjective Date of service: 11/09/20 Principal diagnosis: Altered mental status Interval history: 59 YO Female resident at [facility] for ETOH Detoxification with ETOH Dependence, ETOH Liver Disease, Psychosis presents to ED for evaluation. Patient is confused and lethargic at the time my evaluation is unable to provide detailed history. Patient history taken from EMS staff, ED staff, as well as review with staff. Patient was found to have increased lethargy as well as confusion over the past 1 day with persistent symptoms over the same timeframe as per staff. EMS was notified and upon arrival the patient was found to be in distress and subsequently transported to [facility] for further care and evaluation of the aforementioned symptoms. The patient was seen and evaluated in the emergency department. All lab and imaging studies reviewed. Patient found to have hepatic encephalopathy with increased bilirubin level, moderate malnutrition. Patient placed in observation status and admitted to medical floor and treated with supportive care due to increased risk of worsening sy mptoms. No reports of fever, chills, chest pain, palpitation, productive cough, trauma, recent ill contacts, known exposure to COVID-19. No prior admission for review. No medication listed at time of admission for reconciliation. Patient has diminished cognition but has a positive gag reflex and is able to protect her airway without difficulty at the time my evaluation. 11/06/2020. Patient will require restraints again. Attempted to get up take every line out. Patient attempted to take covers off. Could not calm down very agitated. Evidence of withdrawal. 11/07/2020. Patient awake up but remains confused. Able to tell me she lives in [place] with sister however unable to say her phone number. Has not been able to get in touch with family member at this time. Patient also stated she is spent some time in [place] recently. Answer questions appropriately. Patient did have time when she got up with therapy and was unsteady on her feet. 11/08/2020. Patient remains confused. Still confused about how she got here from [place]. And where she is going. Patient much alert no longer in alcohol withdrawal or any withdrawal. Stable for transfer to inpatient psych if needed. 11/09/2020. Patient out of restraints now back at baseline. This is baseline confusion from either chronic alcohol use versus underlying mental disorder. Patient is eating well alert oriented 3. Attempt to communicate in all endeavors. Appropriate at times. Stable for discharge. No further evidence of withdrawal. Objective - Constitutional Vitals: Vital Signs - 12hr 11/08/20 11/09/20 11/09/20 23:49 00:49 04:41 Temperature 98.3 F Respiratory 17 18 20 Rate Blood Pressure 123/70 O2 Sat by Pulse Oximetry 11/09/20 08:42 Temperature Respiratory Rate Blood Pressure O2 Sat by Pulse 99 Oximetry General appearance: Present: no acute distress, well-nourished - EENT Eyes: PERRL, EOM intact ENT: hearing intact, clear oral mucosa Ears: bilateral: normal - Neck Neck: supple, normal ROM - Respiratory Respiratory effort: normal Respiratory: bilateral: CTA - Breasts Breasts: normal - Cardiovascular Rhythm: regular Heart Sounds: Present: S1 & S2. Absent: gallop, rub Extremities: pulses intact, No edema, normal color, Full ROM - Gastrointestinal General gastrointestinal: Present: soft, non-tender, non-distended, normal bowel sounds - Genitourinary Female genitourinary: normal - Integumentary Integumentary: clear, warm, dry - Musculoskeletal Musculoskeletal: 1, strength equal bilaterally - Neurologic Neurologic: moves all extremities - Psychiatric Psychiatric: memory intact, appropriate mood/affect, intact judgment & insight - Labs CBC & Chem 7: 11/03/20 16:29 07 07:28 HEART Score - HEART Score Troponin: Troponin T < 0.010 ng/mL (0.00-0.029) 11/03/20 16:29
[2020-11-09] MEDS: LORazepam 1 MG TAB PO PRN (14:05)
[2020-11-10] MEDS: LACTULOSE 20 GM/30 ML ORAL LIQD PO SCH ×4 (05:18→23:03)
--- NOTE | 2020-11-10 08:35 | Progress Note ---
Assessment and Plan (1) Hepatic encephalopathy Current Visit: Yes Status: Acute Plan to address problem: Ammonia level, lactulose twice daily scheduled, neuro check, seizure precaution, aspiration precaution, fall precautions, repeat CMP in a.m. No longer aggressive no longer requiring restraints. No restraints Rerestraints. Patient now eating herself. Back at baseline. Discontinue CIWA protocol. Hepatic encephalopathy has resolved. Patient doing well stabilized to transfer to inpatient psych unit if required. No restraints needed Stable for discharge. (2) Alcohol dependence Current Visit: Yes Status: Acute Plan to address problem: Alcohol withdrawal protocol: Thiamine, multivitamin vitamin, folic acid, CIWA protocol Patient shows evidence of alcohol withdrawal with mood. Most of patient's problem is secondary to alcohol appears to be chronic alcoholi sm. Patient unsteady on her feet secondary to being in bed prolonged hospitalization and on CIWA protocol. Stable for discharge . Still attempting to call family member. (3) Malnutrition Current Visit: Yes Status: Acute Qualifiers: Protein-calorie malnutrition severity: moderate Plan to address problem: Dietary supplementation, increase protein intake, Patient eating well ate breakfast fine Continues to eat well. Resolved. (4) Hyperammonemia Current Visit: Yes Status: Acute Plan to address problem: Ammonia level, repeat ammonia level in a.m., lactulose twice daily, (5) DVT prophylaxis Current Visit: Yes Status: Acute Plan to address problem: SCD to bilateral lower extremities while in bed, Subjective Date of service: 11/10/20 Principal diagnosis: Altered mental status Interval history: 59 YO Female resident at [facility] for ETOH Detoxification with ETOH Dependence, ETOH Liver Disease, Psychosis presents to ED for evaluation. Patient is confused and lethargic at the time my evaluation is unable to provide detailed history. Patient history taken from EMS staff, ED staff, as well as review with staff. Patient was found to have increased lethargy as well as confusion over the past 1 day with persistent symptoms over the same timeframe as per staff. EMS was notified and upon arrival the patient was found to be in distress and subsequently transported to [facility] for further care and evaluation of the aforementioned symptoms. The patient was seen and evaluated in the emergency department. All lab and imaging studies reviewed. Patient found to have hepatic encephalopathy with increased bilirubin level, moderate malnutrition. Patient placed in observation status and admitted to medical floor and treated with supportive care due to increased risk of worsening s ymptoms. No reports of fever, chills, chest pain, palpitation, productive cough, trauma, recent ill contacts, known exposure to COVID-19. No prior admission for review. No medication listed at time of admission for reconciliation. Patient has diminished cognition but has a positive gag reflex and is able to protect her airway without difficulty at the time my evaluation. 11/06/2020. Patient will require restraints again. Attempted to get up take every line out. Patient attempted to take covers off. Could not calm down very agitated. Evidence of withdrawal. 11/07/2020. Patient awake up but remains confused. Able to tell me she lives in [place] with sister however unable to say her phone number. Has not been able to get in touch with family member at this time. Patient also stated she is spent some time in [place] recently. Answer questions appropriately. Patient did have time when she got up with therapy and was unsteady on her feet. 11/08/2020. Patient remains confused. Still confused about how she got here from [place]. And where she is going. Patient much alert no longer in alcohol withdrawal or any withdrawal. Stable for transfer to inpatient psych if needed. 11/09/2020. Patient out of restraints now back at baseline. This is baseline confusion from either chronic alcohol use versus underlying mental disorder. Patient is eating well alert oriented 3. Attempt to communicate in all endeavors. Appropriate at times. Stable for discharge. No further evidence of withdrawal. 11/09/2020. Patient is at baseline. Underlying cognitive impairment secondary to alcohol and underlying psychiatric disorder. Patient eating well. Can communicate needs. Stable for discharge home versus inpatient psych facility Objective - Constitutional Vitals: Vital Signs - 12hr 11/09/20 11/09/20 11/10/20 21:12 22:00 04:49 Temperature 98.0 F 98.7 F Pulse Rate 120 H 97 H Respiratory 20 18 Rate Blood Pressure 143/66 135/70 O2 Sat by Pulse 98 96 97 Oximetry General appearance: Present: no acute distress, well-nourished - EENT Eyes: PERRL, EOM intact ENT: hearing intact, clear oral mucosa Ears: bilateral: normal - Neck Neck: supple, normal ROM - Respiratory Respiratory effort: normal Respiratory: bilateral: CTA - Breasts Breasts: normal - Cardiovascular Rhythm: regular Heart Sounds: Present: S1 & S2. Absent: gallop, rub Extremities: pulses intact, No edema, normal color, Full ROM - Gastrointestinal General gastrointestinal: Present: soft, non-tender, non-distended, normal bowel sounds - Genitourinary Female genitourinary: normal - Integumentary Integumentary: clear, warm, dry - Musculoskeletal Musculoskeletal: 1, strength equal bilaterally - Neurologic Neurologic: moves all extremities - Psychiatric Psychiatric: memory intact, appropriate mood/affect, intact judgment & insight - Labs CBC & Chem 7: 11/03/20 16:29 11/07/20 07:28 HEART Score - HEART Score Troponin: Troponin T < 0.010 ng/mL (0.00-0.029) 11/03/20 16:29
[2020-11-10] MEDS: cefTRIAXone/NS 2 GM/100 ML 2 GM/100 ML BAG IV SCH (10:22)
[2020-11-10] MEDS: LORazepam 1 MG TAB PO PRN ×3 (10:32→21:53)
[2020-11-11] MEDS: LACTULOSE 20 GM/30 ML ORAL LIQD PO SCH ×4 (06:32→23:42)
--- NOTE | 2020-11-11 08:49 | Progress Note ---
Assessment and Plan Assessment and plan: 59 YO Female resident at [facility] for ETOH Detoxification with ETOH Dependence, ETOH Liver Disease, Psychosis presents to ED for evaluation. Patient is confused and lethargic at the time my evaluation is unable to provide detailed history. Patient history taken from EMS staff, ED staff, as well as re view with staff. Patient was found to have increased lethargy as well as confusion over the past 1 day with persistent symptoms over the same timeframe as per staff. EMS was notified and upon arrival the patient was found to be in distress and subsequently transported to [facility] for further care and evaluation of the aforementioned symptoms. The patient was seen and evaluated in the emergency department. All lab and imaging studies reviewed. Patient found to have hepatic encephalopathy with increased bilirubin level, moderate malnutrition. Patient placed in observation status and admitted to medical floor and treated with supportive care due to increased risk of worsening symptoms. No reports of fever, chills, chest pain, palpitation, productive cough, trauma, recent ill contacts, known exposure to COVID-19. No prior admission for review. No medication listed at time of admission for reconciliation. Patient has diminished cognition but has a positive gag reflex and is able to protect her airway without difficulty at the time my evaluation. Hepatic encephalopathy Alcohol dependence Protein calorie malnutrition Hyperammonemia Hospital course: 11/06/2020. Patient will require restraints again. Attempted to get up take every line out. Patient attempted to take covers off. Could not calm down very agitated. Evidence of withdrawal. 11/07/2020. Patient awake up but remains confused. Able to tell me she lives in [place] with sister however unable to say her phone number. Has not been able to get in touch with family member at this time. Patient also stated she is spent some time in [place] recently. Answer questions appropriately. Patient did have time when she got up with therapy and was unsteady on her feet. 11/08/2020. Patient remains confused. Still confused about how she got here from [place]. And where she is going. Patient much alert no longer in alcohol withdrawal or any withdrawal. Stable for transfer to inpatient psych if needed. 11/09/2020. Patient out of restraints now back at baseline. This is baseline confusion from either chronic alcohol use versus underlying mental disorder. Patient is eating well alert oriented 3. Attempt to communicate in all endeavors. Appropriate at times. Stable for discharge. No further evidence of withdrawal. 11/10/2020. Patient is at baseline. Underlying cognitive impairment secondary to alcohol and underlying psychiatric disorder. Patient eating well. Can communicate needs. Stable for discharge home versus inpatient psych facility 11/11/2020. No new issues overnight. Case management reports patient can return back to [place]. Await placement. History Interval history: No new issues overnight. Hospitalist Physical - Constitutional Vitals: Temp Pulse Resp BP Pulse Ox 99.4 F 99 H 18 130/68 96 11/11/20 05:07 11/11/20 05:07 11/10/20 21:30 11/11/20 05:07 11/11/20 05:07 General appearance: Present: no acute distress, well-nourished - EENT Eyes: Present: PERRL, EOM intact ENT: hearing intact, clear oral mucosa, dentition normal - Neck Neck: Present: supple, normal ROM - Respiratory Respiratory effort: normal Respiratory: bilateral: CTA - Cardiovascular Rhythm: regular Heart Sounds: Present: S1 & S2. Absent: gallop, rub - Extremities Extremities: no ischemia, No edema, Full ROM - Abdominal General gastrointestinal: soft, non-tender, non-distended, normal bowel sounds - Integumentary Integumentary: Present: clear, warm, dry - Neurologic Neurologic: CNII-XII intact, moves all extremities HEART Score - HEART Score Troponin: Troponin T < 0.010 ng/mL (0.00-0.029) 11/03/20 16:29 Results - Labs CBC & Chem 7: 11/03/20 16:29 11/07/20 07:28 Labs: Laboratory Last Values WBC 7.6 K/mm3 (4.5-11.0) 11/03/20 16:29 RBC 2.86 M/mm3 (3.65-5.03) L 11/03/20 16:29 Hgb 9.6 gm/dl (10.1-14.3) L 11/03/20 16:29 Hct 28.4 % (30.3-42.9) L 11/03/20 16:29 MCV 99 fl (79-97) H 11/03/20 16:29 MCH 33 pg (28-32) H 11/03/20 16:29 MCHC 34 % (30-34) 11/03/20 16:29 RDW 23.5 % (13.2-15.2) H 11/03/20 16:29 Plt Count 169 K/mm3 (140-440) 11/03/20 16:29 Lymph % (Auto) 12.9 % (13.4-35.0) L 11/03/20 16:29 [place] % (Auto) 15.4 % (0.0-7.3) H 11/03/20 16:29 Eos % (Auto) 1.2 % (0.0-4.3) 11/03/20 16:29 Baso % (Auto) 0.9 % (0.0-1.8) 11/03/20 16:29 Lymph # (Auto) 1.0 K/mm3 (1.2-5.4) L 11/03/20 16:29 [place] # (Auto) 1.2 K/mm3 (0.0-0.8) H 11/03/20 16:29 Eos # (Auto) 0.1 K/mm3 (0.0-0.4) 11/03/20 16:29 Baso # (Auto) 0.1 K/mm3 (0.0-0.1) 11/03/20 16:29 Seg Neutrophils % 69.6 % (40.0-70.0) 11/03/20 16:29 Seg Neutrophils # 5.3 K/mm3 (1.8-7.7) 11/03/20 16:29 PT 17.3 Sec. (12.2-14.9) H 11/03/20 16:29 INR 1.35 (0.87-1.13) H 11/03/20 16:29 APTT 36.0 Sec. (24.2-36.6) 11/03/20 16:29 ABG pH 7.414 (7.320-7.450) 11/03/20 17:16 POC ABG pCO2 33.8 mmHg (32.0-48.0) 11/03/20 17:16 POC ABG pO2 91.9 mmHg (83-108) 11/03/20 17:16 POC ABG HCO3 21.1 11/03/20 17:16 ABG O2 Saturation 96.5 (0-100) 11/03/20 17:16 POC ABG Base Excess -2.9 11/03/20 17:16 ABG Hemoglobin 10.5 (12.0-17.5) L 11/03/20 17:16 ABG Oxyhemoglobin 96.2 (94-98) 11/03/20 17:16 ABG Methemoglobin 0.1 (0.0-1.5) 11/03/20 17:16 ABG Sodium 139.0 mmol/L (136.0-145.0) 11/03/20 17:16 ABG Potassium 4.3 mmol/L (3.40-4.50) 11/03/20 17:16 ABG Chloride 106.0 mmol/L (98-107) 11/03/20 17:16 ABG Glucose 84 mg/dL (65-95) 11/03/20 17:16 ABG Lactate 1.13 (0.18-30.0) 11/03/20 17:16 Carboxyhemoglobin 0.2 (0.5-1.5) L 11/03/20 17:16 FiO2 % 21.0 11/03/20 17:16 Sodium 139 mmol/L (137-145) 11/07/20 07:28 Potassium 3.8 mmol/L (3.6-5.0) 11/07/20 07:28 Chloride 104.9 mmol/L (98-107) 11/07/20 07:28 Carbon Dioxide 28 mmol/L (22-30) 11/07/20 07:28 Anion Gap 10 mmol/L 11/07/20 07:28 BUN 7 mg/dL (7-17) 11/07/20 07:28 Creatinine 0.3 mg/dL (0.6-1.2) L 11/07/20 07:28 Estimated GFR > 60 ml/min 11/07/20 07:28 BUN/Creatinine Ratio 23 % 11/07/20 07:28 Glucose 70 mg/dL (65-100) 11/07/20 07:28 POC Glucose 87 mg/dL (70-105) 11/08/20 11:29 Lactic Acid 1.30 mmol/L (0.7-2.0) 11/03/20 16:29 Calcium 7.8 mg/dL (8.4-10.2) L 11/07/20 07:28 Magnesium 1.80 mg/dL (1.7-2.3) 11/03/20 16:29 Total Bilirubin 4.20 mg/dL (0.1-1.2) H 11/04/20 05:55 AST 58 units/L (5-40) H 11/04/20 05:55 ALT 41 units/L (7-56) 11/04/20 05:55 Alkaline Phosphatase 405 units/L (35-129) H 11/04/20 05:55 Ammonia 70.0 umol/L (25-60) H 11/11/20 07:45 Total Creatine Kinase 78 units/L (30-135) 11/03/20 16:29 Troponin T < 0.010 ng/mL (0.00-0.029) 11/03/20 16:29 NT-Pro-B Natriuret Pep 416.8 pg/mL (0-900) 11/03/20 16:29 Total Protein 5.4 g/dL (6.3-8.2) L 11/04/20 05:55 Albumin 2.4 g/dL (3.9-5) L 11/04/20 05:55 Albumin/Globulin Ratio 0.8 % 11/04/20 05:55 TSH 1.400 mlU/mL (0.270-4.200) 11/03/20 16:29 Arterial Blood Glucose 84 mg/dL (65-95) 11/03/20 17:16 Urine Color Loren (Yellow) 11/03/20 17:45 Urine Turbidity Clear (Clear) 11/03/20 17:45 Urine pH 6.0 (5.0-7.0) 11/03/20 17:45 Ur Specific Browning 1.016 (1.003-1.030) 11/03/20 17:45 Urine Protein <15 mg/dl mg/dL (Negative) 11/03/20 17:45 Urine Glucose (UA) Neg mg/dL (Negative) 11/03/20 17:45 Urine Ketones Neg mg/dL (Negative) 11/03/20 17:45 Urine Blood Neg (Negative) 11/03/20 17:45 Urine Nitrite Pos (Negative) 11/03/20 17:45 Urine Bilirubin Neg (Negative) 11/03/20 17:45 Urine Urobilinogen 4.0 mg/dL (<2.0) 11/03/20 17:45 Ur Leukocyte Esterase Tr (Negative) 11/03/20 17:45 Urine WBC (Auto) 3.0 /HPF (0.0-6.0) 11/03/20 17:45 Urine RBC (Auto) 1.0 /HPF (0.0-6.0) 11/03/20 17:45 U Epithel Cells (Auto) < 1.0 /HPF (0-13.0) 11/03/20 17:45 Urine Bacteria (Auto) 2+ /HPF (Negative) 11/03/20 17:45 Urine Mucus Few /HPF 11/03/20 17:45 Salicylates < 0.3 mg/dL (2.8-20.0) L 11/03/20 16:29 Acetaminophen 5.0 ug/mL (10.0-30.0) L 11/03/20 16:29 Plasma/Serum Alcohol < 0.01 % (0-0.07) 11/03/20 16:29 Blood Type O POSITIVE 11/03/20 16:29 Antibody Screen Negative 11/03/20 16:29 Barba/IV: Voiding Method Toilet Active Medications - Current Medications Current Medications: Generic Name Dose Route Start Last Admin Trade Name Freq PRN Reason Stop Dose Admin Acetaminophen 650 mg 11/03/20 18:14 11/09/20 10:17 Acetaminophen 325 Mg Tab PO 650 mg Q4H PRN Administration Pain MILD(1-3)/Fever >100.5/[place] Al Hydrox/Mg Hydrox/Simethicone 30 ml 11/08/20 23:14 11/08/20 23:49 Alum-Mag Hydroxide-Simethicone [id number]/5ml Oral Liqd 30 Ml PO 30 ml Q8HR PRN Administration Indigestion Albuterol 2.5 mg 11/03/20 18:14 11/05/20 21:18 Albuterol 2.5 Mg/3 Ml Nebu IH 2.5 mg Q4HRT PRN Administration Shortness Of Breath Lactulose 20 gm 11/04/20 10:30 11/11/20 06:32 Lactulose 20 Gm/30 Ml Oral Liqd PO 20 gm Q6HR TERESA Administration Lorazepam 2 mg 11/03/20 19:18 11/09/20 23:31 Lorazepam 2 Mg/Ml Vial IV 2 mg Q1HR PRN Administration CIWA-Ar 8-15 Lorazepam 1 mg 11/08/20 12:50 11/10/20 21:53 Lorazepam 1 Mg Tab PO 1 mg Q4H PRN Administration Agitation Olanzapine 5 mg 11/07/20 13:00 11/10/20 10:22 Olanzapine 5 Mg Tab PO 5 mg QDAY TERESA Administration Ondansetron HCl 4 mg 11/03/20 18:14 11/09/20 10:16 Ondansetron 4 Mg/2 Ml Inj IV 4 mg Q8H PRN Administration Nausea And Vomiting Sodium Chloride 10 ml 11/03/20 22:00 11/10/20 21:21 Sodium Chloride 0.9% 10 Ml Flush Syringe IV 10 ml BID TERESA Administration Sodium Chloride 10 ml 11/03/20 18:14 11/06/20 04:57 Sodium Chloride 0.9% 10 Ml Flush Syringe IV 10 ml PRN PRN Administration LINE FLUSH
[2020-11-11] MEDS: LORazepam 1 MG TAB PO PRN (21:50)
[2020-11-12 05:31] VITALS: BP 117/62
[2020-11-12] MEDS: LACTULOSE 20 GM/30 ML ORAL LIQD PO SCH ×2 (05:45→12:42)
--- NOTE | 2020-11-12 08:20 | Discharge Summary ---
Providers - Providers Date of Admission: 11/04/20 11:23 Date of discharge: 11/12/20 Attending physician: BETTY MOYER 11/05/20 07:21 Physical Therapy Evaluation and Treat [CONS] Routine Comment: Reason For Exam: Deconditioning 11/05/20 07:22 Consult to Mental Health [CONS] Routine Reason For Exam: Altered mental status, from [place] Primary care physician: [employer]TING [employer]PER[employer]OR Hospitalization Reason for admission: AMS Condition: Fair Hospital course: 59 YO Female resident at [facility] for ETOH Detoxification with ETOH Dependence, ETOH Liver Disease, Psychosis presented to ED for evaluation of AMS, confusion and lethargy. Patient was found to have increased lethargy as well as confusion over the past 1 day with persistent symptoms over the same timeframe as per staff at [facility]. EMS was notified and upon arrival the patient was found to be in distress and subsequently transported to [facility] for further care and evaluation of the aforementioned symptoms. The patient was seen and evaluated in the emergency department. All lab and imaging studies reviewed. Patient found to have hepatic encephalopathy with increased bilirubin level, moderate malnutrition, alcohol dependence and hyperammonemia. Patient admitted to medical floor and treated with supportive care due to increased risk of worsening symptoms. Hepatic encephalopathy Alcohol dependence Protein calorie malnutrition Hyperammonemia Hospital course: 11/06/2020. Patient will require restraints again. Attempted to get up take every line out. Patient attempted to take covers off. Could not calm down very agitated. Evidence of withdrawal. 11/07/2020. Patient awake up but remains confused. Able to tell me she lives in [place] with sister however unable to say her phone number. Has not been able to get in touch with family member at this time. Patient also stated she is spent some time in [place] recently. Answer questions appropriately. Patient did have time when she got up with therapy and was unsteady on her feet. 11/08/2020. Patient remains confused. Still confused about how she got here from [place]. And where she is going. Patient much alert no longer in alcohol withdrawal or any withdrawal. Stable for transfer to inpatient psych if needed. 11/09/2020. Patient out of restraints now back at baseline. This is baseline confusion from either chronic alcohol use versus underlying mental disorder. Patient is eating well alert oriented 3. Attempt to communicate in all endeavors. Appropriate at times. Stable for discharge. No further evidence of withdrawal. 11/10/2020. Patient is at baseline. Underlying cognitive impairment secondary to alcohol and underlying psychiatric disorder. Patient eating well. Can communicate needs. Stable for discharge home versus inpatient psych facility 11/11/2020. No new issues overnight. Case management reports patient can return back to [place]. Await placement. 11/12/2020. Case management reports [facility] declined to take patient. Therefore, we will discharge home with family and they will seek O/P Psych treatment and look for [facility] in their area. Dedicated discharge time 32 minutes Disposition: DC-01 TO HOME OR SELFCARE Final Discharge Diagnosis (Prints w/discharge instructions): Hepatic encephalopathy, hyperammonemia, AMS, alcohol dependence Core Measure Documentation - Palliative Care Palliative Care/ Comfort Measures: Not Applicable - Core Measures Any of the following diagnoses?: none Exam - Constitutional Vitals: Temp Pulse Resp BP Pulse Ox 98.5 F 96 H 18 117/62 99 11/12/20 05:11/12/20 05:11/12/20 05:11/12/20 05:11/12/20 05:29 General appearance: Present: no acute distress, well-nourished - EENT Eyes: Present: PERRL ENT: hearing intact, clear oral mucosa - Neck Neck: Present: supple, normal ROM - Respiratory Respiratory effort: normal Respiratory: bilateral: CTA - Cardiovascular Heart Sounds: Present: S1 & S2. Absent: rub, click - Extremities Extremities: pulses symmetrical, No edema Peripheral Pulses: within normal limits - Abdominal General gastrointestinal: Present: soft, non-tender, non-distended, normal bowel sounds Female genitourinary: Present: normal - Integumentary Integumentary: Present: clear, warm, dry - Musculoskeletal Musculoskeletal: gait normal, strength equal bilaterally - Psychiatric Psychiatric: appropriate mood/affect, intact judgment & insight - Neurologic Neurologic: CNII-XII intact, moves all extremities Plan Activity: advance as tolerated Weight Bearing Status: Weight Bear as Tolerated Diet: low fat, low cholesterol, low salt Follow up with: PRIMARY CARE, [Primary Care Provider] - 3-5 Days Prescriptions: Lactulose [Cephulac] 20 gm PO Q6HR 30 Days oral.liqd OLANzapine [ZyPREXA] 5 mg PO QDAY #30 tablet OLANzapine [ZyPREXA] 5 mg PO QDAY #30 tablet
--- NOTE | 2020-11-12 11:01 | Progress Note ---
Subjective - Reason for Consult Consult date: 11/12/20 Reason for consult: mental health eval - Chief Complaint Chief complaint: The patient was seen today, she is a/o x 3. She is sitting on side of the bed. She is calm, cooperative and pleasant. She denies SI/HI or hallucinations of any kind. She says "If I was going to hurt anybody I would have been done did it." REVIEW OF SYSTEMS Constitutional: Negative for weight loss ENT: Negative for stridor Respiratory: Negative for cough or hemoptysis All other systems reviewed and are negative MENTAL STATUS EXAMINATION General Appearance and Behavior: Age appropriate, dressed appropriately, calm and cooperative, pleasant Cooperation: Participating Psychomotor Behavior: psychomotor normal Mood: "great" Affect and affective range: Congruent with stated mood Thought Process: impaired Thought Content: None Speech: Normal volume, Regular rate and rhythm, Intellectual Functioning: Average Suicidal Ideation: Denies Homicidal Ideation: Denies Hallucinations: Denies Delusions: None elicited Impulse Control: Limited Insight and Judgment: Limited insight and judgment, Memory: Limited Attention: Undivided Orientation: Alert, oriented Assessment and Plan (1) Bipolar Treatment Plan Zyprexa 5mg po daily Sitter: Refer to primary Medical: Per primary Disposition: Do not recommend acute psychiatric inpatient treatment Will sign off. Thank you for this consult. Case staffed with Dr. Sky. Mental Status Exam - Vital signs Last Vital Signs Temp 98.5 F 11/12/20 05:29 Pulse 96 H 11/12/20 05:29 Resp 18 11/12/20 05:29 BP 117/62 11/12/20 05:29 Pulse Ox 99 11/12/20 05:29
== END 2020-11-12 12:30 | disposition home or self-care (01) | DRG 442 ==
LOC: ED 15:15 → 3A 18:14 → OBSVTOIN 11-04 11:23
PROVIDERS: ADMIT Internal Medicine; ATTEND Hospitalist
DX: K72.90 Hepatic failure, unspecified without coma (principal); E44.0 Moderate protein-calorie malnutrition; E72.20 Disorder of urea cycle metabolism, unspecified; N39.0 Urinary tract infection, site not specified; D64.9 Anemia, unspecified; F20.9 Schizophrenia, unspecified; F31.9 Bipolar disorder, unspecified; F41.9 Anxiety disorder, unspecified; F10.20 Alcohol dependence, uncomplicated; Z68.25 Body mass index [BMI] 25.0-25.9, adult; Z71.3 Dietary counseling and surveillance; Z87.891 Personal history of nicotine dependence
CPT/HCPCS: 36415; 70450; 71045; 80048; 80053; 80320; 81001; 82140; 82550; 82805; 82962; 83735; 83880; 84443; 84484; 85025; 85610; 85730; 86850; 86900; 86901; 87076; 87086; 87186; 93005; 93970; 94640; 96361; 96365; 96366; G0378; G0480; J0696; J2060; J2405; J3411; J7030